=== PATIENT | female | born 1935 | race Caucasian/White ===

== ENCOUNTER 2017-01-24 16:09 | Inpatient (IN) | payer OTHER ==
[~2017-01-24] VITALS: Ht 165.1 cm; Wt 68.7 kg
[2017-01-24] MEDS ORDERED: SODIUM CHLORIDE 0.9% 1000ML 1,000 ML IV SCH (16:23)
[2017-01-24] MEDS ORDERED: AMLO-110 PO (16:41)
[2017-01-24] MEDS ORDERED: POLY335019 PO (16:41)
[2017-01-24] MEDS ORDERED: LOSA1TAB38 PO (16:41)
[2017-01-24] MEDS ORDERED: METO25TA56 PO (16:41)
[2017-01-24] MEDS ORDERED: SENN-65 PO (16:41)
[2017-01-24] MEDS ORDERED: FURO20TA PO (16:41)
[2017-01-24] MEDS ORDERED: CHOL1CAP67 PO (16:41)
[2017-01-24] MEDS ORDERED: AGG PO (16:41)
[2017-01-24] MEDS ORDERED: ATOR-24 PO (16:41)
[2017-01-24 17:09] LABS: BASO % 0.1 %; BASO ABS # 0.01 K/uL (0-0.2); COMPLETE YES; EOS % 0.8 %; HEMATOCRIT 41.5 % (37-47); IG% 0.1 %; LYMPH % 16.1 %; LYMPH ABS # 1.36 K/uL (1.2-3.4); MEAN CELL VOLUME 94.7 fL (80-100); MEAN CORPUSCULAR HEMOGLOBIN 32.4 pg (25-34); MEAN CORPUSCULAR HGB CONC 34.2 g/dl (32-36); MEAN PLATELET VOLUME 9.8 fL (7.4-10.4); MONO % 9.1 %; NEUT % 73.8 %; PLATELET COUNT 290 K/uL (130-400); RED BLOOD COUNT 4.38 M/uL (4.2-5.4); WHITE BLOOD COUNT 8.45 K/uL (4.8-10.8)
--- NOTE | 2017-01-24 17:15 | DIAGNOSTIC IMAGING REPORT ---
CT HEAD WITHOUT CONTRAST (CT) CLINICAL HISTORY: Stroke LEFT-SIDED WEAKNESS AND SLURRED SPEECH COMPARISON STUDY: No previous studies for comparison. TECHNIQUE: Axial CT of the brain is performed from the vertex to the skull base. IV contrast was not administered for this examination. CT DOSE: 537.48 mGy.cm FINDINGS: No intra or extra-axial mass lesions are visualized. There is no CT evidence of acute cortical infarction. There is no evidence of midline shift. There is no acute hemorrhage. No calvarial fractures are visualized. There are moderately extensive white matter hypodensities likely on a small vessel basis. There is an old right thalamic lacunar infarct. There is an old left cerebellar infarct. There is an old lacunar infarct in the region of the left external capsule. There is no evidence of pathologic ventricular dilatation. There is no evidence of acute sinusitis IMPRESSION: No acute intracranial findings Electronically signed by: Christopher Camejo M.D. 01/24/2017 5:14 PM Dictated Date/Time: 01/24/2017 5:12 PM
--- NOTE | 2017-01-24 17:24 | DIAGNOSTIC IMAGING REPORT ---
CHEST ONE VIEW PORTABLE CLINICAL HISTORY: Stroke COMPARISON STUDY: No previous studies for comparison. FINDINGS: The heart is borderline enlarged. There is no failure. There is no lobar consolidation. Linear opacities the left lung base are likely atelectatic.[ IMPRESSION: Left basilar opacities, likely atelectatic. No evidence of failure. Electronically signed by: Christopher Camejo M.D. 01/24/2017 5:22 PM Dictated Date/Time: 01/24/2017 5:22 PM
[2017-01-24 17:28] LABS: BLOOD UREA NITROGEN 12 mg/dl (7-18); BUN/CREATININE RATIO 20.3 (10-20); CALCIUM 9.3 mg/dl (8.5-10.1); CARBON DIOXIDE 29 mmol/L (21-32); CHLORIDE 99 mmol/L (98-107); CREATININE 0.61 mg/dl (0.60-1.20); GLUCOSE 104 mg/dl (70-99); POTASSIUM 3.8 mmol/L (3.5-5.1); SODIUM 137 mmol/L (136-145)
[2017-01-24 17:34] LABS: CKMB/CK RATIO 2.6 (0-3.0)
[2017-01-24 17:44] LABS: ALKALINE PHOSPHATASE 74 U/L (45-117); ALT/SGPT 15 U/L (12-78); AST/SGOT 14 U/L (15-37)
[2017-01-24] MEDS ORDERED: ASPIRIN 300 MG SUPP PR ONE (17:45)
[2017-01-24] MEDS ORDERED: POLYETHYLENE (MIRALAX) 17 GM PACK PO PRN (18:30)
[2017-01-24] MEDS ORDERED: ONDANSETRON INJ 2 MG/ML 2 ML VIAL IV PRN (18:30)
[2017-01-24] MEDS ORDERED: MAGNESIUM HYDROXIDE SUSP 30 ML UDC PO PRN (18:30)
[2017-01-24] MEDS ORDERED: PHARMACIST DISCHARGE MED REC CONSULT PRN (18:30)
[2017-01-24] MEDS ORDERED: ACETAMINOPHEN 325 MG TAB PO PRN (18:30)
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
[2017-01-24] MEDS ORDERED: HydrALAZINE HCL 20 MG/ML VIAL IV. PRN (19:30)
[2017-01-24] MEDS ORDERED: LORAZEPAM 2 MG/ML 1 ML VIAL ONE (19:52)
[2017-01-24 20:00] LABS: URINE APPEARANCE CLEAR (CLEAR); URINE BILIRUBIN NEG (NEG); URINE COLOR YELLOW; URINE EPITHELIAL CELL AUTO 0-5 /lpf (0-5); URINE NITRITE NEG (NEG); URINE SPECIFIC GRAVITY 1.012 (1.000-1.030); UROBILINOGEN NEG (NEG)
[2017-01-24] MEDS ORDERED: NURSING VERBAL MED ORDER ONE (20:00)
[2017-01-24 20:04] LABS: MANUAL MICROSCOPIC REQUIRED? NO; REVIEW REQ? YES
[2017-01-24] MEDS: HEPARIN SOD 5000 UNIT/0.5 ML CARP SQ SCH (22:00)
[2017-01-24 22:30] VITALS: BP 174/103; PULSE 75; TEMP 36.9; O2SAT 92; Ht 165.1 cm; Wt 68.7 kg
--- NOTE | 2017-01-24 22:33 | DIAGNOSTIC IMAGING REPORT ---
MR ANGIOGRAPHY OF THE [place] NO CONTRAST CLINICAL HISTORY: Multiple strokes. Confusion. Left-sided drooping. COMPARISON STUDY: None. A 3-D [id number] MR angiographic sequence of the [place] was performed. Both the source and projection images were reviewed. The study is limited from a technical standpoint secondary to patient motion. There is no evidence of major intracranial branch occlusion. There is no evidence of intracranial stenosis. There are no lesions suspicious for aneurysm. IMPRESSION: 1. Significantly limited study from a technical standpoint 2. No aneurysm identified 3. No evidence of major intracranial stenosis Electronically signed by: Christopher Camejo M.D. 01/24/2017 10:32 PM Dictated Date/Time: 01/24/2017 10:30 PM
--- NOTE | 2017-01-24 22:40 | DIAGNOSTIC IMAGING REPORT ---
MRI OF THE BRAIN WITHOUT AND WITH IV CONTRAST CLINICAL HISTORY: Stroke COMPARISON STUDY: Head CT dated 01/24/2017 TECHNIQUE: MRI of the brain was performed from the vertex to the skull base utilizing various T1 and T2 weighted sequences. Following the IV administration of 7.2 mL of Gadavist contrast, additional enhanced images were obtained. FINDINGS: Sagittal T1, axial diffusion, proton density and T2 weighted axial, coronal FLAIR, and pre and post axial T1-weighted images were acquired. These were supplemented with post gadolinium coronal T1 weighted images. No intra or extra-axial mass lesions are visualized. There are foci of restricted water diffusion within the left central gemma as well as the right caudate and lentiform nucleus. There is also a punctate focus of restricted water diffusion within the deep white matter of the right parietal lobe. There is no evidence of ventricular dilatation. Proton density T2-weighted and FLAIR images reveal there are moderately extensive foci of increased T2 signal within the white matter likely a small vessel basis. There are scattered lacunar infarcts involving the left cerebellar hemisphere, and both thalami. There are no abnormal flow voids. There is no evidence of pathologic enhancement. The examination is limited from a technical standpoint secondary to motion artifact IMPRESSION: 1. Acute/subacute infarcts involving the left central gemma, right caudate, and right lentiform nucleus 2. Moderately extensive white matter disease and multiple additional old lacunar infarcts 3. No pathologically enhancing masses 4. No evidence of hydrocephalus Electronically signed by: Christopher Camejo M.D. 01/24/2017 10:39 PM Dictated Date/Time: 01/24/2017 10:34 PM
[2017-01-24] MEDS ORDERED: GADAVIST IV PRN (22:45)
--- NOTE | 2017-01-24 22:46 | DIAGNOSTIC IMAGING REPORT ---
NECK MRA HISTORY: Stroke TECHNIQUE: [id number] and gadolinium-enhanced MRA of the neck was performed both before and after the intravenous administration of contrast. All measurements were calculated based on NASCET criteria. The patient was administered 7.2 cc of intravenous Gadavist. The study is limited from a technical standpoint secondary to motion artifact. COMPARISON STUDY: None. FINDINGS: The aortic arch and proximal great vessels are patent as visualized. There is no significant stenosis, occlusion, or dissection identified within the bilateral common carotid, internal carotid, or vertebral arteries. IMPRESSION: No significant stenosis, occlusion, or dissection identified within the carotid or vertebral arteries. Electronically signed by: Christopher Camejo M.D. 01/24/2017 10:45 PM Dictated Date/Time: 01/24/2017 10:43 PM
[2017-01-24 23:01] VITALS: BP 175/81; PULSE 68; TEMP 36.8; O2SAT 91
--- NOTE | 2017-01-24 23:02 | EMERGENCY ROOM VISIT NOTE ---
History Report prepared by Kita: Gosia Flower Under the Supervision of: Dr. Kit Rubio D.O. First contact with patient: 16:13 Chief Complaint: STROKE SYMPTOMS Stated Complaint: CVA SX History of Present Illness The patient is a 81 year old female who presents to the Emergency Room with complaints of worsening weakness beginning 2 days ago. Per nursing staff, the patient is living at [facility] after having a stroke recently. They report that she had left sided weakness with her previous stroke and over the last 2 days they have noticed no increasing left sided deficits. Family on the other hand notes that today when he saw her left facial droop is new. The last time I saw her was Sunday night. Nurse from [facility] was adamant that there has been no change since she is been there with exception of mild confusion. The patient states that she has a cold, sore throat, and she is having trouble speaking that began 2 weeks ago. She denies any abdominal pain, falls, trauma, headache, change in vision, chest pain, shortness of breath, nausea, vomiting, diarrhea, and weakness in the arms or legs. The patient states that she does not feel like she is any more weak on the left side. She notes that she is not on any blood thinners Source of History: patient, nursing staff Onset: 2 days ago Position: other (global) Quality: other (left sided weakness) Timing: worsening Associated Symptoms: + sorethroat, No SOB, No chest pain, No diarrhea, No headache, No nausea, No vomiting, No weakness Note: The patient states that she has trouble speaking, a cold and her voice is different than it normally is. She denies any change in vision. Review of Systems See HPI for pertinent positives & negatives. A total of 10 systems reviewed and were otherwise negative. Past Medical & Surgical Medical Problems: (1) CVA (cerebral vascular accident) (2) Stroke Family History No pertinent family history stated. Social History Smokeless Tobacco Use: No Housing Status: other ([facility]) Occupation Status: retired Current/Historical Medications Scheduled Amlodipine (Norvasc), 5 MG PO DAILY Atorvastatin (Lipitor), 40 MG PO DAILY Cholecalciferol (Vitamin D-3), 1,000 UNITS PO QAM Dipyridamole/Aspirin (Aggrenox 25-200 mg), 1 CAP PO BID Furosemide (Lasix), 20 MG PO QAM Losartan Potassium (Cozaar), 100 MG PO DAILY Metoprolol Tartrate (Lopressor) (Lopressor), 25 MG PO BID Polyethylene Glycol 3350 (Miralax), 8.5 GM PO Q2D Senna/Docusate Sod (Senokot S), 1 TAB PO DAILY Allergies Coded Allergies: Hydrochlorothiazide (Unverified Allergy, Unknown, UNKNOWN, 01/24/17) Physical Exam Vital Signs Date Time Temp Pulse Resp B/P Pulse Ox O2 Delivery O2 Flow Rate FiO2 01/24/17 18:32 165/86 01/24/17 18:29 73 17 94 01/24/17 18:14 74 16 91 01/24/17 18:09 71 18 93 01/24/17 18:02 183/89 01/24/17 17:54 71 19 01/24/17 17:41 172/81 01/24/17 17:39 71 20 93 01/24/17 17:24 78 15 01/24/17 17:14 187/91 01/24/17 16:54 73 20 01/24/17 16:48 72 01/24/17 16:33 94 Room Air 01/24/17 16:23 36.3 69 18 183/95 94 Room Air 01/24/17 16:14 183/95 Physical Exam GENERAL: alert, sitting up in bed, disheveled, ill-appearing EYE EXAM: normal conjunctiva, PERRL and EOM's intact OROPHARYNX: no exudate, no erythema, lips, buccal mucosa, and tongue normal and mucous membranes are moist NECK: supple, no nuchal rigidity, no adenopathy, non-tender LUNGS: Clear to auscultation. Normal chest wall mechanics HEART: no murmurs, S1 normal and S2 normal ABDOMEN: abdomen soft, non-tender, normo-active bowel sounds, no masses, no rebound or guarding. BACK: Back is symmetrical on inspection and there is no deformity, no midline tenderness, no CVA tenderness. SKIN: no rashes and no bruising UPPER EXTREMITIES: upper extremities are grossly normal. LOWER EXTREMITIES: No pitting edema. NEURO EXAM: Alert and oriented to person, place, and time. Slurred speech with left sided facial droop, weakness in the left upper and lower extremities but able to lift up off of the bed and grasp. Slight drift on the left. Finger to nose intact. Medical Decision & Procedures ER Provider Diagnostic Interpretation: Radiology results as stated below per my review and the radiologist's interpretation: CT HEAD WITHOUT CONTRAST (CT) FINDINGS: No intra or extra-axial mass lesions are visualized. There is no CT evidence of acute cortical infarction. There is no evidence of midline shift. There is no acute hemorrhage. No calvarial fractures are visualized. There are moderately extensive white matter hypodensities likely on a small vessel basis. There is an old right thalamic lacunar infarct. There is an old left cerebellar infarct. There is an old lacunar infarct in the region of the left external capsule. There is no evidence of pathologic ventricular dilatation. There is no evidence of acute sinusitis IMPRESSION: No acute intracranial findings Electronically signed by: Christopher Camejo M.D. 01/24/2017 5:14 PM Dictated Date/Time: 01/24/2017 5:12 PM CHEST ONE VIEW PORTABLE FINDINGS: The heart is borderline enlarged. There is no failure. There is no lobar consolidation. Linear opacities the left lung base are likely atelectatic.[ IMPRESSION: Left basilar opacities, likely atelectatic. No evidence of failure. Electronically signed by: Christopher Camejo M.D. 01/24/2017 5:22 PM Dictated Date/Time: 01/24/2017 5:22 PM Laboratory Results 01/24/17 16:52 Red Blood Count 4.38, Mean Corpuscular Volume 94.7, Mean Corpuscular Hemoglobin 32.4, Mean Corpuscular Hemoglobin Concent 34.2, Mean Platelet Volume 9.8, Neutrophils (%) (Auto) 73.8, Lymphocytes (%) (Auto) 16.1, Monocytes (%) (Auto) 9.1, Eosinophils (%) (Auto) 0.8, Basophils (%) (Auto) 0.1, Neutrophils # (Auto) 6.23, Lymphocytes # (Auto) 1.36, Monocytes # (Auto) 0.77, Eosinophils # (Auto) 0.07, Basophils # (Auto) 0.01 01/24/17 16:52 Test 01/24/17 16:38 01/24/17 16:52 01/24/17 17:00 01/24/17 17:30 Bedside Prothrombin Time INR 1.1 (0.9-1.1) White Blood Count 8.45 K/uL (4.8-10.8) Red Blood Count 4.38 M/uL (4.2-5.4) Hemoglobin 14.2 g/dL (12.0-16.0) Hematocrit 41.5 % (37-47) Mean Corpuscular Volume 94.7 fL (80-100) Mean Corpuscular Hemoglobin 32.4 pg (25-34) Mean Corpuscular Hemoglobin Concent 34.2 g/dl (32-36) Platelet Count 290 K/uL (130-400) Mean Platelet Volume 9.8 fL (7.4-10.4) Neutrophils (%) (Auto) 73.8 % Lymphocytes (%) (Auto) 16.1 % Monocytes (%) (Auto) 9.1 % Eosinophils (%) (Auto) 0.8 % Basophils (%) (Auto) 0.1 % Neutrophils # (Auto) 6.23 K/uL (1.4-6.5) Lymphocytes # (Auto) 1.36 K/uL (1.2-3.4) Monocytes # (Auto) 0.77 K/uL (0.11-0.59) Eosinophils # (Auto) 0.07 K/uL (0-0.5) Basophils # (Auto) 0.01 K/uL (0-0.2) RDW Standard Deviation 48.7 fL (36.4-46.3) RDW Coefficient of Variation 14.1 % (11.5-14.5) Immature Granulocyte % (Auto) 0.1 % Immature Granulocyte # (Auto) 0.01 K/uL (0.00-0.02) Anion Gap 9.0 mmol/L (3-11) Est Creatinine Clear Calc Drug Dose 71.1 ml/min Estimated GFR () 97.8 Estimated GFR (Non- 84.4 BUN/Creatinine Ratio 20.3 (10-20) Calcium Level 9.3 mg/dl (8.5-10.1) Total Bilirubin 0.4 mg/dl (0.2-1) Direct Bilirubin < 0.1 mg/dl (0-0.2) Aspartate Amino Transf (AST/SGOT) 14 U/L (15-37) Alanine Aminotransferase (ALT/SGPT) 15 U/L (12-78) Alkaline Phosphatase 74 U/L (45-117) Total Creatine Kinase 53 U/L (26-192) Creatine Kinase MB 1.4 ng/ml (0.5-3.6) Creatine Kinase MB Ratio 2.6 (0-3.0) Troponin I < 0.015 ng/ml (0-0.045) Total Protein 8.0 gm/dl (6.4-8.2) Albumin 3.7 gm/dl (3.4-5.0) Prothrombin Time 11.0 SECONDS (9.0-12.0) Prothromb Time International Ratio 1.0 (0.9-1.1) Activated Partial Thromboplast Time 24.8 SECONDS (21.0-31.0) Partial Thromboplastin Ratio 1.0 Urine Color YELLOW Urine Appearance CLEAR (CLEAR) Urine pH 6.0 (4.5-7.5) Urine Specific [place] 1.012 (1.000-1.030) Urine Protein NEG (NEG) Urine Glucose (UA) NEG (NEG) Urine Ketones TRACE (NEG) Urine Occult Blood 2+ (NEG) Urine Nitrite NEG (NEG) Urine Bilirubin NEG (NEG) Urine Urobilinogen NEG (NEG) Urine Leukocyte Esterase MODERATE (NEG) Urine WBC (Auto) >30 /hpf (0-5) Urine RBC (Auto) 5-10 /hpf (0-4) Urine Hyaline Casts (Auto) 0 /lpf (0-5) Urine Epithelial Cells (Auto) 0-5 /lpf (0-5) Urine Bacteria (Auto) NEG (NEG) Urine Pathogenic Casts /lpf (0) Laboratory results per my review. Medications Administered Medications (Trade) Dose Ordered Sig/Ivelisse Route Start Time Stop Time Status Last Admin Dose Admin Sodium Chloride (Nss 1000ml) 1,000 ml @ 50 mls/hr Q20H IV 01/24/17 16:23 01/24/17 20:21 DC 01/24/17 16:23 50 MLS/HR Aspirin (Aspirin Supp) 300 mg ONE ONCE NC 01/24/17 17:45 01/24/17 17:46 DC 01/24/17 19:14 300 MG ECG Indication: weakness Rate (beats per minute): 69 Rhythm: sinus rhythm Findings: left axis deviation, no ectopy ED Course ED COURSE: Vital signs were reviewed and showed hypertension The patients medical record was reviewed The above diagnostic studies were performed and reviewed. ED treatments and interventions as stated above. 1613: The patient was evaluated in room B9. A complete history and physical examination was performed. 1623: Sodium Chloride 1000 ml @ 50 mls/hr IV. 1710: I discussed the patient's case with [facility]. They state that the patient has been more confused over the last 2 days and the family noted a worsening left sided facial droop. 1725: I spoke to the patients family. The last time they saw her was Sunday and the facial droop and slurred speech was not there. They saw her 2 hours ago and noticed it. She has had 2 strokes in the last several months. 1745: Aspirin 300mg NC. 1742: I reviewed the patient's case with Dr. Cabrera of [facility] [place]. She will evaluate the patient for further management. 1744: Upon reevaluation, the patient is doing well.I discussed my findings with the patient and she understands and agrees with the treatment plan. Based on the patients age, coexisting illnesses, exam and lab findings the decision to treat as an inpatient was made. The patient remained stable while under my care. The patient will be evaluated for further management. Medical Decision Differential Diagnosis includes but is not limited to ischemic Stroke, hemorrhagic stroke, bells palsy, mass, neoplasm, migraine headache, seizure, subarachnoid hemorrhage, TIA, and transient global amnesia. Medication Reconciliation: I attest that I have personally reviewed the patient' s current medication list. Patient is an 81-year-old female is brought in by EMS for possible stroke. Family last saw her on Sunday and notes that today the facial droop and slurred speech is new. The patient notes that this has been present for the past 2 weeks. senior living staff note that slurred speech and facial droop is not new but rather she is slightly more confused. CBC along with BMP, LFTs and bilirubin was unremarkable. Troponin was negative. CT head was negative. UA shows UTI. Patient and family were updated at bedside. There admitted to internal medicine. A stroke alert was not called as I was uncertain if this is new or old and when the symptoms started. Consults Time Called: 173 Consulting Physician: Dr. Cabrera - [facility] [place] Returned Call: 174 I reviewed the patient's case with Dr. Cabrera of [facility] [place]. She will evaluate the patient for further management. Impression Primary Impression: Stroke Scribe Attestation The scribe's documentation has been prepared under my direction and personally reviewed by me in its entirety. I confirm that the note above accurately reflects all work, treatment, procedures, and medical decision making performed by me. Departure Information Dispostion Being Evaluated By Hospitalist Referrals No Doctor, Assigned (PCP) Patient Instructions My [facility] Stroke History Stroke t-PA Criteria Reviewed Does NOT meet criteria for t-PA Reason t-PA Not Given Treatment not indicated Problem Qualifiers Primary Impression: Stroke CVA mechanism: other Qualified Codes: I63.8 - Other cerebral infarction
[2017-01-24] MEDS: METOPROLOL TARTRATE 25 MG TAB PO SCH (23:16)
[2017-01-25] VITALS (14 sets, daily range): BP systolic 149–182; BP diastolic 79–90; PULSE 71–91; TEMP 36.4–36.9; O2SAT 91–97
[2017-01-25] MEDS ORDERED: NURSING DECISION MEDICATION ORDER SCH (04:15)
[2017-01-25] MEDS ORDERED: ICU SEVERE HYPERGLYCEMIA PROTOCOL ONE (04:15)
[2017-01-25] MEDS ORDERED: NURSING ICU ELECTROLYTE ORDER ONE (04:15)
[2017-01-25] MEDS ORDERED: NURSING VERBAL MED ORDER ONE ×2 (04:15→20:15)
[2017-01-25 05:45] LABS: BASO % 0.1 %; BASO ABS # 0.01 K/uL (0-0.2); COMPLETE YES; EOS % 0.8 %; HEMATOCRIT 38.1 % (37-47); IG% 0.1 %; LYMPH ABS # 1.12 K/uL (1.2-3.4); MEAN CELL VOLUME 94.3 fL (80-100); MEAN CORPUSCULAR HEMOGLOBIN 31.2 pg (25-34); MEAN CORPUSCULAR HGB CONC 33.1 g/dl (32-36); MEAN PLATELET VOLUME 9.7 fL (7.4-10.4); MONO % 11.9 %; NEUT % 72.1 %; PLATELET COUNT 262 K/uL (130-400); RED BLOOD COUNT 4.04 M/uL (4.2-5.4); WHITE BLOOD COUNT 7.46 K/uL (4.8-10.8)
[2017-01-25 06:18] LABS: BUN/CREATININE RATIO 21.1 (10-20); CALCIUM 8.5 mg/dl (8.5-10.1); CREATININE 0.48 mg/dl (0.60-1.20); MAGNESIUM 2.2 mg/dl (1.8-2.4); POTASSIUM 3.5 mmol/L (3.5-5.1)
[2017-01-25 06:21] LABS: CHOLESTEROL/HDL RATIO 1.6
--- NOTE | 2017-01-25 07:11 | DIAGNOSTIC IMAGING REPORT ---
CT OF THE HEAD WITHOUT CONTRAST CLINICAL HISTORY: fall and hit head, s/p CVA COMPARISON STUDY: Head CT and MRI of the brain January 24, 2017. CT DOSE: 1228.53 mGy.cm TECHNIQUE: Helical axial images of the head were obtained without IV contrast. Automated exposure control was utilized for the study. FINDINGS: No acute intracranial hemorrhage, midline shift or mass effect is present. Ventricular system is stable. Basilar cisterns are patent. There are no extra-axial collections. Extensive white matter hypodensity suggests small vessel disease. There is an old infarct within left cerebellar hemisphere. There is an old infarct within the right thalamus. The small acute to subacute infarcts on MRI of the brain performed January 24, 2017 are better depicted on that exam. There is no calvarial fracture. IMPRESSION: 1. No acute intracranial hemorrhage or mass effect. 2. The small acute to subacute infarcts shown on MRI of January 24, 2017 are better depicted on that exam. 3. No calvarial fracture. Electronically signed by: Angel Hdz M.D. 01/25/2017 7:10 AM Dictated Date/Time: 01/25/2017 7:05 AM
--- NOTE | 2017-01-25 08:05 | DIAGNOSTIC IMAGING REPORT ---
CHEST ONE VIEW PORTABLE CLINICAL HISTORY: Left rib pain after fall. COMPARISON STUDY: Chest radiograph January 24, 2017. FINDINGS: No pneumothorax or pleural effusion is identified. No left rib fractures are identified although sensitivity is diminished given this technique. There are cholecystectomy clips. Mild cardiomegaly is noted without evidence of pulmonary edema. There is mild left basilar opacity. IMPRESSION: 1. No pneumothorax. 2. Mild left basilar opacity which likely reflects atelectasis although consolidation could appear similar. Electronically signed by: Angel Hdz M.D. 01/25/2017 8:04 AM Dictated Date/Time: 01/25/2017 8:02 AM
[2017-01-25] MEDS ORDERED: DIPYRIDAMOLE/ASPIRIN CAP PO SCH (09:00)
[2017-01-25] MEDS: METOPROLOL TARTRATE 25 MG TAB PO SCH ×2 (09:00→21:00)
[2017-01-25] MEDS: ATORVASTATIN 40 MG TAB PO SCH (09:00)
[2017-01-25 09:46] LABS: ESTIMATED AVERAGE GLUCOSE 128 mg/dl; HA1C FLAG Normal (Normal)
[2017-01-25] MEDS ORDERED: PERFLUTREN LIPID MICROSPHERE (DEFINITY) IV ONE (10:11)
--- NOTE | 2017-01-25 10:36 | ECHOCARDIOGRAM REPORT ---
*NOTICE TO RECEIVING CONSTITUTION PARTY AGENCY This information is strictly Confidential and protected under [place] law. [place] law prohibits you from making any further disclosure of this information unless further disclosure is expressly permitted by the written consent of the person to whom it pertains or is authorized by law. A general authorization for the release of medical or other information is not sufficient for this purpose. Hospital accepts no responsibility if the information is made available to any other person, INCLUDING THE PATIENT. Interpretation Summary * Name: FERNANDEZ ROSA Study Date: 01/25/2017 07:44 AM BP: 151/82 mmHg * Patient Location: C.2T\S\S230\S\1 HR: 71 * : 1935 (M/d/yyyy) Gender: Female Height: 65 in * Age: 81 yrs Ethnicity: [place] Weight: 160 lb * Ordering Physician: Tayler Santos * Referring Physician: Ayden Oneil PA-C * Performed By: Lory Bates RDCS * * Reason For Study: CEREBRAL ISCHEMIA/EMBOLUS * BSA: 1.8 m2 * -- Conclusions -- * There is mild concentric left ventricular hypertrophy. * The left ventricle is hyperdynamic. * Grade I diastolic dysfunction, (abnormal relaxation pattern). * There is mild mitral regurgitation. * Right ventricular systolic pressure is elevated at 30-40mmHg. Procedure Details * A contrast injection of Definity was performed to improve assessment of LV function. * Contrast was injected into an intravenous site in the right arm. * One vial of Definity ultrasound contrast was diluted in normal saline to a total volume of 10 ml. A total of '2' ml of solution was administered during imaging. * Lot # [id number] of Definity utilized for procedure. * Expiration date MAR 13. * The attending nurse who injected the contrast agent was TAO REILLY RN. * A saline contrast injection was performed to assess for cardiac shunting. * The injection was performed through an intravenous line in the right arm. * The attending nurse who injected the saline contrast was TAO REILLY RN. * A total of 20 cc of agitated saline was given. Left Ventricle * The left ventricle is normal in size. * There is mild concentric left ventricular hypertrophy. * Ejection Fraction = >70 %. * The left ventricle is hyperdynamic. * Grade I diastolic dysfunction, (abnormal relaxation pattern). Right Ventricle * The right ventricle is normal in size and function. Atria * The left atrial size is normal. * Right atrial size is normal. Mitral Valve * The mitral valve leaflets appear thickened, but open well. * There is mild mitral regurgitation. Tricuspid Valve * The tricuspid valve anatomy is normal. * There is mild tricuspid regurgitation. * Right ventricular systolic pressure is elevated at 30-40mmHg. Aortic Valve * The aortic valve is normal in structure and function. * The aortic valve is trileaflet. * No hemodynamically significant valvular aortic stenosis. * There is no significant aortic regurgitation. Great Vessels * The aortic root is normal size. Pericardium/Pleural * There is no pericardial effusion. MMode 2D Measurements and Calculations IVSd 1.1 cm IVSs 1.4 cm LVIDd 3.5 cm LVIDs 1.9 cm LVPWd 0.83 cm LVPWs 1.6 cm IVS/LVPW 1.4 FS 47.5 % EDV(Teich) 52.6 ml ESV(Teich) 10.6 ml EF(Teich) 79.9 % EDV(cubed) 44.7 ml ESV(cubed) 6.4 ml EF(cubed) 85.6 % % IVS thick 24.3 % % LVPW thick 91.7 % LV mass(C)d 102.8 grams LV mass(C)dI 57.2 grams/m\S\2 LV mass(C)s 91.0 grams LV mass(C)sI 50.6 grams/m\S\2 CO(Teich) 3.2 l/min CI(Teich) 1.8 l/min/m\S\2 SV(Teich) 42.0 ml SI(Teich) 23.3 ml/m\S\2 CO(cubed) 2.9 l/min CI(cubed) 1.6 l/min/m\S\2 SV(cubed) 38.2 ml SI(cubed) 21.2 ml/m\S\2 Ao root diam 3.1 cm Ao root area 7.5 cm\S\2 ACS 1.3 cm LA dimension 3.4 cm asc Aorta Diam 3.3 cm LA/Ao 1.1 LVOT diam 1.7 cm LVOT area 2.3 cm\S\2 LVAd ap4 29.1 cm\S\2 LVLd ap4 8.0 cm EDV(MOD-sp4) 88.9 ml LVAs ap4 12.1 cm\S\2 LVLs ap4 5.9 cm ESV(MOD-sp4) 20.4 ml EF(MOD-sp4) 77.1 % LVAd ap2 24.6 cm\S\2 LVLd ap2 7.1 cm EDV(MOD-sp2) 70.7 ml LVAs ap2 8.6 cm\S\2 LVLs ap2 4.9 cm ESV(MOD-sp2) 13.3 ml EF(MOD-sp2) 81.2 % CO(MOD-sp4) 5.3 l/min CI(MOD-sp4) 2.9 l/min/m\S\2 SV(MOD-sp4) 68.5 ml SI(MOD-sp4) 38.1 ml/m\S\2 CO(MOD-sp2) 4.4 l/min CI(MOD-sp2) 2.5 l/min/m\S\2 SV(MOD-sp2) 57.4 ml SI(MOD-sp2) 31.9 ml/m\S\2 Doppler Measurements and Calculations MV E max roby 51.4 cm/sec MV A max roby 110.6 cm/sec MV E/A 0.46 MV P1/2t max roby 87.5 cm/sec MV P1/2t 78.4 msec MVA(P1/2t) 2.8 cm\S\2 MV dec slope 326.9 cm/sec\S\2 MV dec time 0.49 sec Ao V2 max 164.2 cm/sec Ao max PG 10.8 mmHg Ao max PG (full) -0.03 mmHg MARITZA(V,A) 2.3 cm\S\2 MARITZA(V,D) 2.3 cm\S\2 LV V1 max PG 10.8 mmHg LV V1 max 164.4 cm/sec PA V2 max 87.6 cm/sec PA max PG 3.1 mmHg PI max roby 166.2 cm/sec PI max PG 11.1 mmHg PI dec slope 125.3 cm/sec\S\2 PI P1/2t 388.5 msec TR max roby 264.0 cm/sec
--- NOTE | 2017-01-25 10:46 | ECHOCARDIOGRAM REPORT ---
*NOTICE TO RECEIVING GREEN PARTY AGENCY This information is strictly Confidential and protected under [place] law. [place] law prohibits you from making any further disclosure of this information unless further disclosure is expressly permitted by the written consent of the person to whom it pertains or is authorized by law. A general authorization for the release of medical or other information is not sufficient for this purpose. Hospital accepts no responsibility if the information is made available to any other person, INCLUDING THE PATIENT. Interpretation Summary * Name: FERNANDEZ ROSA Study Date: 01/25/2017 07:44 AM BP: 151/82 mmHg * Patient Location: C.2T\S\S230\S\1 HR: 71 * : 1935 (M/d/yyyy) Gender: Female Height: 65 in * Age: 81 yrs Ethnicity: [place] Weight: 160 lb * Ordering Physician: Tayler Santos * Referring Physician: Ayden Oneil PA-C * Performed By: Lory Bates RDCS * * Reason For Study: CEREBRAL ISCHEMIA/EMBOLUS * BSA: 1.8 m2 * -- Conclusions -- * There is mild concentric left ventricular hypertrophy. * The left ventricle is hyperdynamic. * Grade I diastolic dysfunction, (abnormal relaxation pattern). * There is mild mitral regurgitation. * Right ventricular systolic pressure is elevated at 30-40mmHg. * Injection of contrast documented no interatrial shunt. Procedure Details * A contrast injection of Definity was performed to improve assessment of LV function. * Contrast was injected into an intravenous site in the right arm. * One vial of Definity ultrasound contrast was diluted in normal saline to a total volume of 10 ml. A total of '2' ml of solution was administered during imaging. * Lot # [id number] of Definity utilized for procedure. * Expiration date MAR 13. * The attending nurse who injected the contrast agent was TAO REILLY RN. * A saline contrast injection was performed to assess for cardiac shunting. * The injection was performed through an intravenous line in the right arm. * The attending nurse who injected the saline contrast was TAO REILLY RN. * A total of 20 cc of agitated saline was given. Left Ventricle * The left ventricle is normal in size. * There is mild concentric left ventricular hypertrophy. * Ejection Fraction = >70 %. * The left ventricle is hyperdynamic. * Grade I diastolic dysfunction, (abnormal relaxation pattern). Right Ventricle * The right ventricle is normal in size and function. Atria * The left atrial size is normal. * Right atrial size is normal. * Injection of contrast documented no interatrial shunt. Mitral Valve * The mitral valve leaflets appear thickened, but open well. * There is mild mitral regurgitation. Tricuspid Valve * The tricuspid valve anatomy is normal. * There is mild tricuspid regurgitation. * Right ventricular systolic pressure is elevated at 30-40mmHg. Aortic Valve * The aortic valve is normal in structure and function. * The aortic valve is trileaflet. * No hemodynamically significant valvular aortic stenosis. * There is no significant aortic regurgitation. Great Vessels * The aortic root is normal size. Pericardium/Pleural * There is no pericardial effusion. MMode 2D Measurements and Calculations IVSd 1.1 cm IVSs 1.4 cm LVIDd 3.5 cm LVIDs 1.9 cm LVPWd 0.83 cm LVPWs 1.6 cm IVS/LVPW 1.4 FS 47.5 % EDV(Teich) 52.6 ml ESV(Teich) 10.6 ml EF(Teich) 79.9 % EDV(cubed) 44.7 ml ESV(cubed) 6.4 ml EF(cubed) 85.6 % % IVS thick 24.3 % % LVPW thick 91.7 % LV mass(C)d 102.8 grams LV mass(C)dI 57.2 grams/m\S\2 LV mass(C)s 91.0 grams LV mass(C)sI 50.6 grams/m\S\2 CO(Teich) 3.2 l/min CI(Teich) 1.8 l/min/m\S\2 SV(Teich) 42.0 ml SI(Teich) 23.3 ml/m\S\2 CO(cubed) 2.9 l/min CI(cubed) 1.6 l/min/m\S\2 SV(cubed) 38.2 ml SI(cubed) 21.2 ml/m\S\2 Ao root diam 3.1 cm Ao root area 7.5 cm\S\2 ACS 1.3 cm LA dimension 3.4 cm asc Aorta Diam 3.3 cm LA/Ao 1.1 LVOT diam 1.7 cm LVOT area 2.3 cm\S\2 LVAd ap4 29.1 cm\S\2 LVLd ap4 8.0 cm EDV(MOD-sp4) 88.9 ml LVAs ap4 12.1 cm\S\2 LVLs ap4 5.9 cm ESV(MOD-sp4) 20.4 ml EF(MOD-sp4) 77.1 % LVAd ap2 24.6 cm\S\2 LVLd ap2 7.1 cm EDV(MOD-sp2) 70.7 ml LVAs ap2 8.6 cm\S\2 LVLs ap2 4.9 cm ESV(MOD-sp2) 13.3 ml EF(MOD-sp2) 81.2 % CO(MOD-sp4) 5.3 l/min CI(MOD-sp4) 2.9 l/min/m\S\2 SV(MOD-sp4) 68.5 ml SI(MOD-sp4) 38.1 ml/m\S\2 CO(MOD-sp2) 4.4 l/min CI(MOD-sp2) 2.5 l/min/m\S\2 SV(MOD-sp2) 57.4 ml SI(MOD-sp2) 31.9 ml/m\S\2 Doppler Measurements and Calculations MV E max roby 51.4 cm/sec MV A max roby 110.6 cm/sec MV E/A 0.46 MV P1/2t max roby 87.5 cm/sec MV P1/2t 78.4 msec MVA(P1/2t) 2.8 cm\S\2 MV dec slope 326.9 cm/sec\S\2 MV dec time 0.49 sec Ao V2 max 164.2 cm/sec Ao max PG 10.8 mmHg Ao max PG (full) -0.03 mmHg MARITZA(V,A) 2.3 cm\S\2 MARITZA(V,D) 2.3 cm\S\2 LV V1 max PG 10.8 mmHg LV V1 max 164.4 cm/sec PA V2 max 87.6 cm/sec PA max PG 3.1 mmHg PI max roby 166.2 cm/sec PI max PG 11.1 mmHg PI dec slope 125.3 cm/sec\S\2 PI P1/2t 388.5 msec TR max roby 264.0 cm/sec
[2017-01-25] MEDS: SODIUM CHLOR 0.45% + 20MEQ KCL 1,000 ML IV SCH (13:00)
[2017-01-25] MEDS: HEPARIN SOD 5000 UNIT/0.5 ML CARP SQ SCH ×2 (14:04→21:43)
--- NOTE | 2017-01-25 17:38 | CONSULTATION REPORT ---
DATE OF CONSULTATION: 01/25/2017 CONSULTATION FOR: Ayden Oneil PA-C. 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 [place] records were reviewed, the workup there including MRI scan showed multiple emboli and an echocardiogram was unremarkable with the exception of some left atrial enlargement. There is no mention made of any paroxysmal atrial fibrillation. Vascular studies revealed no clear source of the emboli and the carotid system at least documented by MRA, etc. She was doing reasonably well at [facility] allowing for her baseline dementia and her status post a prior hemorrhagic CVA apparently in 2011, but then was noted to have an acute left facial droop, more confusion, slurred speech and was sent here. The MRI in [place] revealed tiny foci restricted diffusion throughout the right cerebral hemisphere involving the frontal lobe, parietal lobe, possibly the temporal lobe and the right basal ganglia and one tiny punctate focus of restricted diffusion involving the anterior corpus callosum. The report also goes on to state there were tiny foci of restricted diffusion in the left cerebellar hemispheres. There is also extensive white matter disease from prior small vessel events. The current MRI done here at [facility] shows changes in newer areas and these would correlate nicely with her current deficits. It appears therefore that she has had recurrent embolic events despite being treated with Aggrenox over the last several days, started at [facility]. MEDICAL PROBLEMS: Including the prior CVA, hypertension, and an increasing dementia to the point that the family has been unable to care for at home. She has had frequent falls due to impulsivity and an application has been placed for [employer]. MEDICATIONS: At [facility] include amlodipine, atorvastatin, cholecalciferol, Aggrenox, furosemide, losartan, metoprolol, polyethylene glycol and senna. ALLERGIES: She has no coded drug allergies. According to, I believe her daughter, she had been on just aspirin at home after the first cerebrovascular accident in 2011, but had not had any other agents added to this. FAMILY HISTORY: Noncontributory. SOCIAL HISTORY: Reveals her to be . She currently is living with a daughter, but plans are as above to place her on an extended care facility. She is a nonsmoker, no-consumer of ethanol. She is retired. REVIEW OF SYSTEMS: Reveals no recent fevers, sweats, chills, weight loss, although she needs to be encouraged to eat, but when food is presented she has a ferocious appetite. There has been no abdominal complaints. She has had no issues referable to head, eyes, ears, nose and throat other than those related to her strokes. There have been no cardiovascular, pulmonary, gastrointestinal, and genitourinary issues either. PHYSICAL EXAMINATION: GENERAL: Performed last night revealed a blood pressure 183/95, pulse of 69; she was afebrile. GENERAL: She was a thin elderly woman who had dysarthric speech. NECK: Supple. LUNGS: Clear. HEART: Had a regular rate and rhythm. EXTREMITIES: Revealed no edema. ABDOMEN: There was no enlargement of liver or spleen. NEUROLOGIC: Today neurologically she is awake, alert. She has dysarthric speech. She is clearly confused, talks about her and is not oriented to place at this point and really not a reliable historian. She has a left upper motor neuron facial paresis. 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 She has no primary sensory loss that I can detect. There is no preferential head or eye deviation. She has a left hemiparesis of mild to moderate severity. The left toe sign is extensor is a positive Pamela, reflexes are a little brisker on the left side. How many of these findings are new versus old, is unclear. The right-sided testing is normal, really no pathologic reflexes, hyperreflexia, etc. Sensory examination is pretty unreliable. I tried to test her sensory neglect and was unsuccessful in doing so. IMAGING DATA: At this point, again, our MRI shows evidence for acute to subacute infarction involving the left central gemma, right caudate and right lentiform nucleus. There is moderately extensive white matter disease and multiple old lacunar infarctions. IMPRESSION AND PLAN: Comparing at least what the [facility] written report says It appears that what we are seeing now is fairly new and I think the left-sided weakness is probably due to the new right caudate and/or right lentiform nuclei embolic infarctions. Right now, this woman has "failed "on Aggrenox therapy ( duration however may have been to short to make this conclusion valid ). She is cognitively impaired, has a high fall risk and while her left atrium was dilated on the [place], echo it appears to be a normal size on our study. She may be having paroxysmal atrial fibrillation, but even if she is I think her risk for going on to novel anticoagulants or Coumadin is outweighed by any benefits skilled nursing and after discussion with her daughter today, I believe she is on the same page. At this point then, one could continue to use the Aggrenox as the argument could be it was not on her medication list long enough to become effective. Another option is to switch to aspirin and Plavix. I will let this up to her current caregivers, but I see no harm in either approach. As long as she is tolerating the Aggrenox and has it paid for, I would simply continue it for now. Dr. Falcon is going to be coming on the service. I will check Mrs. Dalal out to her and I will see what she feels about further management, but for now, I would go on record is not being in favor of doing further investigations to see if she is in paroxysmal atrial fibrillation as frankly. Even if she were, I do not think we would change our treatment. Quibbling about what antiplatelet drug to use in this setting is of probably more academic than practical benefit as neither asa and plavix or aggrenox are likley to offer much protection against what is likely paroxysmal atrial fibrillation and both would be appropriate for otherwise cryptogenic embolic strokes. MAYRA
--- NOTE | 2017-01-25 18:07 | Progress Note ---
Subjective Date of Service: Jan 25, 2017. Subjective Pt evaluation today including: conversation w/ family, physical exam, chart review, lab review, review of studies, review of inpatient medication list pt seen around 1130 extensive discussion with family no meaningful HPI or ROS obtainable from pt at this time - will occassionally grunt and motion with mouth for sponge d/w speech - did poorly - for video swallow tomorrow family notes was doing well at [facility] then found in near-current state - sent to ER. was there recovering from stroke ~3wks ago - she was on asa 325mg daily prior to that, changed to aggrenox separately family notes a progressive decline - worsening dementia - to where they're afraid to leave her home alone -- this has been worsening for a long time and they note even before the stroke she was not safe at home Review of Systems unobtainable Objective Vital Signs Date Time Temp Pulse Resp B/P (MAP) Pulse Ox O2 Delivery O2 Flow Rate FiO2 01/25/17 16:00 93 Room Air 01/25/17 15:19 36.7 82 20 153/79 (103) 96 Room Air 01/25/17 15:05 88 97 01/25/17 12:00 93 Room Air 01/25/17 11:20 36.9 83 20 165/88 (113) 93 Room Air 01/25/17 08:00 93 Room Air 01/25/17 07:55 36.4 71 20 151/82 (105) 93 Room Air 01/25/17 04:10 Room Air 01/25/17 03:06 36.4 71 20 175/90 (118) 96 Room Air 01/25/17 01:00 81 16 175/82 (113) 91 Room Air 01/25/17 00:10 91 Room Air 01/24/17 23:01 36.8 68 16 175/81 (112) 91 Room Air 01/24/17 22:30 36.9 75 20 174/103 92 Room Air 01/24/17 20:12 36.3 80 18 182/98 93 01/24/17 19:01 171/90 01/24/17 18:59 76 18 90 01/24/17 18:44 75 19 93 01/24/17 18:32 165/86 01/24/17 18:29 73 17 94 01/24/17 18:14 74 16 91 01/24/17 18:09 71 18 93 01/24/17 18:02 183/89 Physical Exam General Appearance: no apparent distress (resting in bed, occassionaly grunts for water) Neck: trachea midline Respiratory/Chest: no respiratory distress, no accessory muscle use Skin: normal color, warm/dry Laboratory Results Last 24 Hours Test 01/25/17 05:14 White Blood Count 7.46 K/uL Red Blood Count 4.04 M/uL Hemoglobin 12.6 g/dL Hematocrit 38.1 % Mean Corpuscular Volume 94.3 fL Mean Corpuscular Hemoglobin 31.2 pg Mean Corpuscular Hemoglobin Concent 33.1 g/dl Platelet Count 262 K/uL Mean Platelet Volume 9.7 fL Neutrophils (%) (Auto) 72.1 % Lymphocytes (%) (Auto) 15.0 % Monocytes (%) (Auto) 11.9 % Eosinophils (%) (Auto) 0.8 % Basophils (%) (Auto) 0.1 % Neutrophils # (Auto) 5.37 K/uL Lymphocytes # (Auto) 1.12 K/uL Monocytes # (Auto) 0.89 K/uL Eosinophils # (Auto) 0.06 K/uL Basophils # (Auto) 0.01 K/uL RDW Standard Deviation 48.0 fL RDW Coefficient of Variation 14.0 % Immature Granulocyte % (Auto) 0.1 % Immature Granulocyte # (Auto) 0.01 K/uL Sodium Level 138 mmol/L Potassium Level 3.5 mmol/L Chloride Level 100 mmol/L Carbon Dioxide Level 32 mmol/L Anion Gap 6.0 mmol/L Blood Urea Nitrogen 10 mg/dl Creatinine 0.48 mg/dl Est Creatinine Clear Calc Drug Dose 90.2 ml/min Estimated GFR () 105.9 Estimated GFR (Non- 91.4 BUN/Creatinine Ratio 21.1 Random Glucose 105 mg/dl Estimated Average Glucose 128 mg/dl Hemoglobin A1c 6.1 % Calcium Level 8.5 mg/dl Magnesium Level 2.2 mg/dl Triglycerides Level 46 mg/dl Cholesterol Level 100 mg/dl HDL Cholesterol 63 mg/dl LDL Cholesterol, Calculated 28 mg/dl VLDL Cholesterol, Calculated 9 mg/dl Cholesterol/HDL Ratio 1.6 Assessment and Plan ? 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 3wks ago and now aggrenox w current stroke MRI, echo, carotids, lipids, A1c noted -stroke b/l raising concern for central embolic, but overall picture seems that of hypertensive small vessel disease -since can't safely take pills right now - holding on all but asa suppository -await neuro input but doubt enough nidus for anticoagulation at this time, [facility] / son in law note that there they were told she had a "hailstorm" stroke. 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
[2017-01-25] MEDS ORDERED: METOPROLOL TARTRATE 1 MG/ML VIAL IV PRN (20:45)
[2017-01-26] VITALS (12 sets, daily range): BP systolic 126–180; BP diastolic 64–92; PULSE 69–90; TEMP 36.6–36.9; O2SAT 92–99
[2017-01-26] MEDS: SODIUM CHLOR 0.45% + 20MEQ KCL 1,000 ML IV SCH (03:01)
[2017-01-26] MEDS: HEPARIN SOD 5000 UNIT/0.5 ML CARP SQ SCH ×3 (05:40→20:48)
[2017-01-26 05:54] LABS: BASO % 0.2 %; BASO ABS # 0.01 K/uL (0-0.2); COMPLETE YES; EOS % 1.1 %; IG% 0.2 %; LYMPH % 19.9 %; LYMPH ABS # 1.07 K/uL (1.2-3.4); MEAN CELL VOLUME 94.8 fL (80-100); MEAN CORPUSCULAR HEMOGLOBIN 31.4 pg (25-34); MEAN CORPUSCULAR HGB CONC 33.2 g/dl (32-36); MEAN PLATELET VOLUME 9.5 fL (7.4-10.4); MONO % 10.4 %; NEUT % 68.2 %; PLATELET COUNT 276 K/uL (130-400); RED BLOOD COUNT 4.01 M/uL (4.2-5.4); WHITE BLOOD COUNT 5.38 K/uL (4.8-10.8)
[2017-01-26 06:36] LABS: BUN/CREATININE RATIO 20.4 (10-20); CALCIUM 8.6 mg/dl (8.5-10.1); CREATININE 0.55 mg/dl (0.60-1.20); POTASSIUM 4.1 mmol/L (3.5-5.1)
[2017-01-26] MEDS ORDERED: ASPIRIN 300 MG SUPP PR SCH (09:00)
[2017-01-26] MEDS: ATORVASTATIN 40 MG TAB PO SCH (09:00)
[2017-01-26] MEDS: METOPROLOL TARTRATE 25 MG TAB PO SCH ×2 (09:00→20:46)
--- NOTE | 2017-01-26 14:54 | DIAGNOSTIC IMAGING REPORT ---
VIDEO SWALLOW HISTORY: r/o aspiration post-stroke; please schedule per order TECHNIQUE: Video fluoroscopic evaluation of swallowing was performed in the AP and lateral projections by the speech pathology staff. The patient is fed nectar-thick and thin liquid barium, a barium coated wafer, and barium pudding. FLUOROSCOPY TIME: 4.5 minutes. A cine loop submitted. COMPARISON STUDY: None. FINDINGS: There is slightly poor pharyngeal constriction and pharyngeal fasciculations resulting in a few episodes of incomplete epiglottic deflection. This results in deep penetration with the thin liquid barium. No aspiration was identified. Small to moderate amount of residue seen within the hypopharynx. IMPRESSION: 1. No aspiration identified. Additional findings as described above. 2. Please see the speech pathologist report for detailed findings and recommendations. Electronically signed by: Yousif Kumar M.D. 01/26/2017 2:53 PM Dictated Date/Time: 01/26/2017 2:50 PM
[2017-01-26] MEDS ORDERED: ALPRAZOLAM 0.25 MG TAB PO ONE (15:24)
[2017-01-26] MEDS ORDERED: LORAZEPAM 0.5 MG TAB PO STA (15:34)
--- NOTE | 2017-01-26 15:36 | Progress Note ---
Subjective Date of Service: Jan 26, 2017. Subjective Pt evaluation today including: conversation w/ patient, conversation w/ family , physical exam, chart review, lab review, review of studies, review of inpatient medication list did reasonably well on video swallow - modified diet but safe for PO no meaningful HPI or ROS - does reiterate/perseverate that she feels like she has to have a BM, and that R hand is a little cold. no active complaints otherwise family present and updated to the best of my ability and to their satisfaction Review of Systems essentially unobtainable except for as above Objective Vital Signs Date Time Temp Pulse Resp B/P (MAP) Pulse Ox O2 Delivery O2 Flow Rate FiO2 01/26/17 12:00 93 Room Air 01/26/17 11:42 36.9 82 16 180/76 (110) 95 Room Air 01/26/17 11:38 36.8 83 173/92 (119) 92 Room Air 01/26/17 08:00 93 Room Air 01/26/17 07:54 36.6 75 16 162/64 (96) 93 Room Air 01/26/17 04:00 93 Room Air 01/26/17 03:47 36.7 84 20 159/82 (107) 93 Room Air 01/26/17 00:01 93 Room Air 01/25/17 23:25 36.9 87 20 149/80 (103) 93 Room Air 01/25/17 21:53 85 162/85 (110) 01/25/17 21:18 99 191/81 01/25/17 20:00 93 Room Air 01/25/17 19:26 36.9 91 18 182/79 (113) 93 Room Air 01/25/17 16:00 93 Room Air Physical Exam General Appearance: no apparent distress Eyes: EOMI ENT: hearing grossly normal, + pertinent finding (L side of head bruising stable/healing) Neck: trachea midline Respiratory/Chest: lungs clear, normal breath sounds, no respiratory distress, no accessory muscle use Cardiovascular: regular rate, rhythm Abdomen: non tender (nondistended), soft Extremities: normal range of motion (overall - difficult to totally assess. hand cold but only in a "normally cold" kind of way no cyanosis good n/v intact) Neurologic/Psychiatric: alert, + pertinent finding (very difficult exam no new deficits noted) Skin: normal color, warm/dry Laboratory Results Last 24 Hours Test 6/2/17 05:30 White Blood Count 5.38 K/uL Red Blood Count 4.01 M/uL Hemoglobin 12.6 g/dL Hematocrit 38.0 % Mean Corpuscular Volume 94.8 fL Mean Corpuscular Hemoglobin 31.4 pg Mean Corpuscular Hemoglobin Concent 33.2 g/dl Platelet Count 276 K/uL Mean Platelet Volume 9.5 fL Neutrophils (%) (Auto) 68.2 % Lymphocytes (%) (Auto) 19.9 % Monocytes (%) (Auto) 10.4 % Eosinophils (%) (Auto) 1.1 % Basophils (%) (Auto) 0.2 % Neutrophils # (Auto) 3.67 K/uL Lymphocytes # (Auto) 1.07 K/uL Monocytes # (Auto) 0.56 K/uL Eosinophils # (Auto) 0.06 K/uL Basophils # (Auto) 0.01 K/uL RDW Standard Deviation 48.8 fL RDW Coefficient of Variation 14.2 % Immature Granulocyte % (Auto) 0.2 % Immature Granulocyte # (Auto) 0.01 K/uL Sodium Level 137 mmol/L Potassium Level 4.1 mmol/L Chloride Level 101 mmol/L Carbon Dioxide Level 30 mmol/L Anion Gap 6.0 mmol/L Blood Urea Nitrogen 11 mg/dl Creatinine 0.55 mg/dl Est Creatinine Clear Calc Drug Dose 76.8 ml/min Estimated GFR () 101.2 Estimated GFR (Non- 87.4 BUN/Creatinine Ratio 20.4 Random Glucose 99 mg/dl Calcium Level 8.6 mg/dl Assessment and Plan 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 3wks ago and now aggrenox w current stroke MRI, echo, carotids, lipids, A1c noted -stroke b/l raising concern for central embolic, but overall picture seems that of hypertensive small vessel disease -permissive HTN, antiplatelet, statin (agree w neuro that mainly academic between plavix or aggrenox with paucity of data on CVA failing asa) -PT/OT/speech -records reviewed from [place] - appearing embolic but all on same side of brain no clear indication for anticoagulation then either HTN -permissive HTN for now -Hydralazine 10 mg IV q 6 hr PRN -depending on BP readings - likely start PO meds (metoprolol) in 24-48hrs dysphagia -diet per speech recommendations -able to take pills -dc IVFs dementia (possibly with some acute delirium) -family describes probably moderate moving towards severe as prestroke baseline -they note not safe at home prior to strokes - anticipate half-way in SNF. first for rehab from stroke then likely as half-way for dementia--family much prefers [facility] in [place] anxiety -family notes that at baseline she was taking xanax uncertain dose TID scheduled for years -- reviewed PDMP - actually it's lorazepam 0.5mg -- hesitate to give since she has dementia/elderly/in hospital/showing some signs of delirium; but hesitate to not give due to concern on withdrawal --> will cautiously give BID and follow DVT prophylaxis -Heparin 5000 u subQ tID -ELI SCDs CODE STATUS -LEVEL V DO NO RESUSCITATE stable for med/surg anticipate [facility] SNF by 01/29
[2017-01-26] MEDS: LORAZEPAM 0.5 MG TAB PO SCH (20:45)
[2017-01-26] MEDS ORDERED: ALPRAZOLAM 0.25 MG TAB PO SCH (21:00)
--- NOTE | 2017-01-27 04:01 | NEUROLOGY CONSULTATION ---
DATE OF CONSULTATION: 01/26/2017 SUBJECTIVE: I am seeing Mrs. Dalal in followup. Dr. Lopez saw her yesterday and by review of his note, she has history of a right stroke in approximately 2012 with residual left hemiparesis. She had a recent admission to [facility] for new neurologic deficit. MRI is showing multiple emboli. Echo was unremarkable with the exception of some left atrial enlargement. She was placed on Aggrenox at the time of stroke and transferred to [facility]. At [facility], several days ago, it was noted that she had change in her speech as well as new left facial droop. The MRI at our facility shows acute to subacute infarcts involving the left central gemma, right caudate and right lentiform nucleus. Dr. Lopez has appropriately discussed with her daughter that this may be cardioembolic in nature and he recommended the continuing Aggrenox which she had probably not been on for long enough to know that it would be effective or switching to aspirin and Plavix. The patient has done well. She had a swallowing study today, the evening before she fell out of bed with a large area of ecchymosis of the left face. I have reviewed her CT and it shows no evidence of hemorrhage. OBJECTIVE: GENERAL: She is able to state her own name. She believes she is in [place], does not know the year, does not have right/left confusion. VITAL SIGNS: 36.9, 82, 16, 180/76 and 95%. NEUROLOGIC: There is no obvious field cut. There is a very prominent flattening of the left nasal labial fold. There is dysarthria. Left hemiparesis is noted. IMPRESSION: Multiple bilateral cerebral and brainstem infarction. Very possibly embolic, but the patient is a very poor candidate for anticoagulant therapy. I agree with Dr. Lopez; we could either continue Aggrenox switch to Plavix and aspirin. Gradual risk factor modification including gradual reduction of blood pressure. It appears that her lipids are well-managed. We will follow with you.
[2017-01-27] MEDS: HEPARIN SOD 5000 UNIT/0.5 ML CARP SQ SCH ×3 (05:43→20:36)
[2017-01-27 07:37] LABS: BASO % 0.2 %; BASO ABS # 0.01 K/uL (0-0.2); COMPLETE YES; EOS % 2.6 %; HEMATOCRIT 37.2 % (37-47); IG% 0.2 %; LYMPH % 18.8 %; LYMPH ABS # 1.08 K/uL (1.2-3.4); MEAN CELL VOLUME 94.4 fL (80-100); MEAN CORPUSCULAR HEMOGLOBIN 31.5 pg (25-34); MEAN CORPUSCULAR HGB CONC 33.3 g/dl (32-36); MEAN PLATELET VOLUME 9.5 fL (7.4-10.4); MONO % 12.7 %; NEUT % 65.5 %; PLATELET COUNT 268 K/uL (130-400); RED BLOOD COUNT 3.94 M/uL (4.2-5.4); WHITE BLOOD COUNT 5.75 K/uL (4.8-10.8)
[2017-01-27 07:50] VITALS: BP 169/85; PULSE 69; TEMP 36.7; O2SAT 90
[2017-01-27] MEDS: ATORVASTATIN 40 MG TAB PO SCH (08:26)
[2017-01-27] MEDS: LORAZEPAM 0.5 MG TAB PO SCH ×2 (08:26→20:24)
[2017-01-27] MEDS: METOPROLOL TARTRATE 25 MG TAB PO SCH ×2 (08:26→20:24)
[2017-01-27 08:42] LABS: BUN/CREATININE RATIO 17.5 (10-20); CALCIUM 8.7 mg/dl (8.5-10.1); CREATININE 0.52 mg/dl (0.60-1.20); POTASSIUM 3.7 mmol/L (3.5-5.1)
[2017-01-27] MEDS: CLOPIDOGREL BISULFATE 75 MG TAB PO SCH (10:32)
--- NOTE | 2017-01-27 13:07 | PROGRESS NOTE ---
DATE: 01/27/2017 SUBJECTIVE: I am seeing Mrs. Dalal in followup of multiple cerebral infarcts, likely embolic. She has been switched to Plavix. She has no new complaints. She has no headache. OBJECTIVE: She is awake, alert, mildly confused, able to state her name. She thinks she is in a nursing facility. There is no field cut, a mild left facial droop and a modest left hemiparesis, arm greater than leg. IMPRESSION AND PLAN: Multiple cerebral infarctions, very likely cardioembolic. The patient is a poor candidate for anticoagulation given the fall risk and underlying cognitive dysfunction. Agree with Plavix, risk factor modification, gradual reduction in blood pressure. We will sign off. Please reconsult, if needed.
--- NOTE | 2017-01-27 14:07 | Progress Note ---
Subjective Date of Service: Jan 27, 2017. Subjective Pt evaluation today including: conversation w/ patient, physical exam, chart review, lab review, review of inpatient medication list no new complaints. moving better, feeling better. due to dementia and slurred speech, HPI very difficult to ascertain but seems to have no acute complaints Review of Systems ROS otherwise unobtainable except for as above Objective Vital Signs Date Time Temp Pulse Resp B/P (MAP) Pulse Ox O2 Delivery O2 Flow Rate FiO2 01/27/17 07:50 36.7 69 18 169/85 (113) 90 Room Air 01/27/17 00:00 Room Air 01/26/17 23:21 36.6 69 18 126/79 (95) 96 Room Air 01/26/17 17:36 36.6 90 18 143/81 (101) 93 Room Air 01/26/17 17:15 99 Room Air 01/26/17 16:00 99 Room Air Physical Exam General Appearance: no apparent distress Eyes: EOMI ENT: hearing grossly normal (seems to be), + pertinent finding (facial droop L slurred speech but much more communicative than yesterday and far more alert than on day 1) Neck: trachea midline Respiratory/Chest: lungs clear, normal breath sounds, no respiratory distress, no accessory muscle use Cardiovascular: regular rate, rhythm Extremities: normal range of motion Neurologic/Psychiatric: instructor creeler II-XII nml as tested (facial droop slurred speech as above), alert, + disoriented (seems to be fairly confused - after discussions with family seems probably not too far from baseline) Skin: normal color, warm/dry Laboratory Results Last 24 Hours Test 01/27/17 06:46 White Blood Count 5.75 K/uL Red Blood Count 3.94 M/uL Hemoglobin 12.4 g/dL Hematocrit 37.2 % Mean Corpuscular Volume 94.4 fL Mean Corpuscular Hemoglobin 31.5 pg Mean Corpuscular Hemoglobin Concent 33.3 g/dl Platelet Count 268 K/uL Mean Platelet Volume 9.5 fL Neutrophils (%) (Auto) 65.5 % Lymphocytes (%) (Auto) 18.8 % Monocytes (%) (Auto) 12.7 % Eosinophils (%) (Auto) 2.6 % Basophils (%) (Auto) 0.2 % Neutrophils # (Auto) 3.77 K/uL Lymphocytes # (Auto) 1.08 K/uL Monocytes # (Auto) 0.73 K/uL Eosinophils # (Auto) 0.15 K/uL Basophils # (Auto) 0.01 K/uL RDW Standard Deviation 48.8 fL RDW Coefficient of Variation 14.2 % Immature Granulocyte % (Auto) 0.2 % Immature Granulocyte # (Auto) 0.01 K/uL Sodium Level 140 mmol/L Potassium Level 3.7 mmol/L Chloride Level 103 mmol/L Carbon Dioxide Level 32 mmol/L Anion Gap 5.0 mmol/L Blood Urea Nitrogen 9 mg/dl Creatinine 0.52 mg/dl Est Creatinine Clear Calc Drug Dose 81.2 ml/min Estimated GFR () 103.1 Estimated GFR (Non- 89.0 BUN/Creatinine Ratio 17.5 Random Glucose 98 mg/dl Calcium Level 8.7 mg/dl Assessment and Plan 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 3wks ago and now aggrenox w current stroke MRI, echo, carotids, lipids, A1c noted -stroke b/l raising concern for central embolic, but overall picture seems that of hypertensive small vessel disease, and agree w neurology about risks for anticoagulation being more harm than good -without a clear "smoking gun" of embolic disease requiring anticoagulation - would continue anitplatelet -permissive HTN, antiplatelet, statin (agree w neuro that mainly academic between plavix or aggrenox with paucity of data on CVA failing asa), on plavix -PT/OT/speech -records reviewed from [facility] - appearing embolic but all on same side of brain no clear indication for anticoagulation then either HTN -BP's all reasonable -Hydralazine 10 mg IV q 6 hr PRN -will start metoprolol 01/28 dysphagia -diet per speech recommendations -able to take pills -no s/s aspiration dementia (possibly with some acute delirium) -family describes probably moderate moving towards severe as prestroke baseline -they note not safe at home prior to strokes - anticipate long-term in SNF. 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
[2017-01-27 15:26] VITALS: BP 155/93; PULSE 82; TEMP 37.1; O2SAT 94
[2017-01-27 22:59] VITALS: BP 123/75; PULSE 70; TEMP 37.2; O2SAT 93
[2017-01-28] MEDS: HEPARIN SOD 5000 UNIT/0.5 ML CARP SQ SCH ×3 (05:59→20:01)
[2017-01-28 06:34] VITALS: BP 167/94; PULSE 70; TEMP 36.4; O2SAT 94
[2017-01-28] MEDS: LORAZEPAM 0.5 MG TAB PO SCH ×2 (09:19→19:53)
[2017-01-28] MEDS: ATORVASTATIN 40 MG TAB PO SCH (09:20)
[2017-01-28] MEDS: METOPROLOL TARTRATE 25 MG TAB PO SCH ×2 (09:20→19:53)
[2017-01-28] MEDS: CLOPIDOGREL BISULFATE 75 MG TAB PO SCH (09:20)
[2017-01-28 14:44] VITALS: BP 160/91; PULSE 73; TEMP 36.7; O2SAT 95
--- NOTE | 2017-01-28 16:18 | Progress Note ---
Subjective Date of Service: Jan 28, 2017. Subjective Pt evaluation today including: conversation w/ patient, physical exam, chart review, lab review, review of inpatient medication list feeling better up and brighter, moving more speaking more clearly good eye contact. notes no acute complaints. still overall pleasantly confused, almost able to carry on proximal conversation. seems to deny any complaints of significance Review of Systems ROS otherwise unobtainable except for as above, ROS otherwise negative except for as above Objective Vital Signs Date Time Temp Pulse Resp B/P (MAP) Pulse Ox O2 Delivery O2 Flow Rate FiO2 01/28/17 14:44 36.7 73 18 160/91 (114) 95 Room Air 01/28/17 08:00 Room Air 01/28/17 06:34 36.4 70 20 167/94 (118) 94 Room Air 01/28/17 00:00 Room Air 01/27/17 22:59 37.2 70 18 123/75 (91) 93 Room Air 01/27/17 20:00 Room Air Physical Exam General Appearance: no apparent distress Eyes: EOMI ENT: hearing grossly normal Neck: trachea midline Respiratory/Chest: no respiratory distress, no accessory muscle use Extremities: normal range of motion Neurologic/Psychiatric: + pertinent finding (persistent facial droop and slurred speech) Skin: normal color, warm/dry Assessment and Plan 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 3wks ago and now aggrenox w current stroke MRI, echo, carotids, lipids, A1c noted -stroke b/l raising concern for central embolic, but overall picture seems that of hypertensive small vessel disease, and agree w neurology about risks for anticoagulation being more harm than good -without a clear "smoking gun" of embolic disease requiring anticoagulation - would continue anitplatelet -permissive HTN (slowly titrate control), antiplatelet, statin (agree w neuro that mainly academic between plavix or aggrenox with paucity of data on CVA failing asa), on plavix -PT/OT/speech -records reviewed from [place] - appearing embolic but all on same side of brain no clear indication for anticoagulation then either -appearing that she'll be stable for transfer to [facility] 01/29 if possible HTN -BP's all reasonable -Hydralazine 10 mg IV q 6 hr PRN -back on metoprolol -lisinopril start today, follow BP, follow BMP dysphagia -diet per speech recommendations -able to take pills -no s/s aspiration -ongoing speech eval and treat dementia (possibly with some acute delirium) -family describes probably moderate moving towards severe as prestroke baseline -they note not safe at home prior to strokes - anticipate orthopedic dentist in SNF. first for rehab from stroke then likely as fpc for dementia--family much prefers [facility] in [place] -mental state does appear improving from day to day anxiety -family notes that at baseline she was taking xanax uncertain dose TID scheduled for years -- reviewed PDMP 01/26 - actually it's lorazepam 0.5mg -- cautiously started at 0.5mg bid to balance between not wanting to risk delirogenic effects and not wanting to precipitate withdrawal -- appears to be stable at this dosing DVT prophylaxis -Heparin 5000 u subQ TID -TEDS, SCDs CODE STATUS -LEVEL V DO NO RESUSCITATE stable on med/surg anticipate [facility] SN[facility] by 01/29
[2017-01-28 23:08] VITALS: BP 174/82; PULSE 70; TEMP 36.6; O2SAT 90
[2017-01-29] MEDS: HEPARIN SOD 5000 UNIT/0.5 ML CARP SQ SCH ×2 (04:59→13:56)
[2017-01-29 07:11] VITALS: BP 200/79; PULSE 74; TEMP 36.7; O2SAT 90
[2017-01-29 07:55] LABS: BUN/CREATININE RATIO 15.7 (10-20); CALCIUM 8.8 mg/dl (8.5-10.1); CREATININE 0.5 mg/dl (0.60-1.20); POTASSIUM 3.7 mmol/L (3.5-5.1)
[2017-01-29] MEDS ORDERED: LISINOPRIL 5 MG TAB PO SCH (08:00)
[2017-01-29] MEDS: CLOPIDOGREL BISULFATE 75 MG TAB PO SCH (08:01)
[2017-01-29] MEDS: LORAZEPAM 0.5 MG TAB PO SCH (08:01)
[2017-01-29] MEDS: ATORVASTATIN 40 MG TAB PO SCH (08:01)
[2017-01-29] MEDS: METOPROLOL TARTRATE 25 MG TAB PO SCH (08:01)
[2017-01-29 08:43] VITALS: BP 171/99; PULSE 86
--- NOTE | 2017-01-29 09:18 | Discharge Summary ---
Discharge Summary Date of Service Jan 29, 2017. (Anya Charlton PA-C) Discharge Summary Admission Date: January 24, 2017 at 18:36 Discharge Date: Jan 29, 2017 Discharge Disposition: long-term facility Principal Diagnosis: CVA Problems/Secondary Diagnoses: Multiple cerebral infarctions, likely cardioembolic HTN UTI Dementia Anxiety Procedures: ECHOCARDIOGRAM: Interpretation Summary * Name: FERNANDEZ ROSA Study Date: 01/25/2017 07:44 AM BP: 151/82 mmHg * Patient Location: [facility]\S\S230\S\1 HR: 71 * : 1935 (M/d/yyyy) Gender: Female Height: 65 in * Age: 81 yrs Ethnicity: [place] Weight: 160 lb * Ordering Physician: Tayler Santos * Referring Physician: Ayden Oneil PA-C * Performed By: Lory Bates RDCS * * Reason For Study: CEREBRAL ISCHEMIA/EMBOLUS * BSA: 1.8 m2 * -- Conclusions -- * There is mild concentric left ventricular hypertrophy. * The left ventricle is hyperdynamic. * Grade I diastolic dysfunction, (abnormal relaxation pattern). * There is mild mitral regurgitation. * Right ventricular systolic pressure is elevated at 30-40mmHg. Procedure Details * A contrast injection of Definity was performed to improve assessment of LV function. * Contrast was injected into an intravenous site in the right arm. * One vial of Definity ultrasound contrast was diluted in normal saline to a total volume of 10 ml. A total of '2' ml of solution was administered during imaging. * Lot # [id number] of Definity utilized for procedure. * Expiration date 1 MAR 13. * The attending nurse who injected the contrast agent was TAO REILLY RN. * A saline contrast injection was performed to assess for cardiac shunting. * The injection was performed through an intravenous line in the right arm. * The attending nurse who injected the saline contrast was TAO REILLY RN. * A total of 20 cc of agitated saline was given. Left Ventricle * The left ventricle is normal in size. * There is mild concentric left ventricular hypertrophy. * Ejection Fraction = >70 %. * The left ventricle is hyperdynamic. * Grade I diastolic dysfunction, (abnormal relaxation pattern). Right Ventricle * The right ventricle is normal in size and function. Atria * The left atrial size is normal. * Right atrial size is normal. Mitral Valve * The mitral valve leaflets appear thickened, but open well. * There is mild mitral regurgitation. Tricuspid Valve * The tricuspid valve anatomy is normal. * There is mild tricuspid regurgitation. * Right ventricular systolic pressure is elevated at 30-40mmHg. Aortic Valve * The aortic valve is normal in structure and function. * The aortic valve is trileaflet. * No hemodynamically significant valvular aortic stenosis. * There is no significant aortic regurgitation. Great Vessels * The aortic root is normal size. Pericardium/Pleural * There is no pericardial effusion. MMode 2D Measurements and Calculations IVSd 1.1 cm IVSs 1.4 cm LVIDd 3.5 cm LVIDs 1.9 cm LVPWd 0.83 cm LVPWs 1.6 cm IVS/LVPW 1.4 FS 47.5 % EDV(Teich) 52.6 ml ESV(Teich) 10.6 ml EF(Teich) 79.9 % EDV(cubed) 44.7 ml ESV(cubed) 6.4 ml EF(cubed) 85.6 % % IVS thick 24.3 % % LVPW thick 91.7 % LV mass(C)d 102.8 grams LV mass(C)dI 57.2 grams/m\S\2 LV mass(C)s 91.0 grams LV mass(C)sI 50.6 grams/m\S\2 CO(Teich) 3.2 l/min CI(Teich) 1.8 l/min/m\S\2 SV(Teich) 42.0 ml SI(Teich) 23.3 ml/m\S\2 CO(cubed) 2.9 l/min CI(cubed) 1.6 l/min/m\S\2 SV(cubed) 38.2 ml SI(cubed) 21.2 ml/m\S\2 Ao root diam 3.1 cm Ao root area 7.5 cm\S\2 ACS 1.3 cm LA dimension 3.4 cm asc Aorta Diam 3.3 cm LA/Ao 1.1 LVOT diam 1.7 cm LVOT area 2.3 cm\S\2 LVAd ap4 29.1 cm\S\2 LVLd ap4 8.0 cm EDV(MOD-sp4) 88.9 ml LVAs ap4 12.1 cm\S\2 LVLs ap4 5.9 cm ESV(MOD-sp4) 20.4 ml EF(MOD-sp4) 77.1 % LVAd ap2 24.6 cm\S\2 LVLd ap2 7.1 cm EDV(MOD-sp2) 70.7 ml LVAs ap2 8.6 cm\S\2 LVLs ap2 4.9 cm ESV(MOD-sp2) 13.3 ml EF(MOD-sp2) 81.2 % CO(MOD-sp4) 5.3 l/min CI(MOD-sp4) 2.9 l/min/m\S\2 SV(MOD-sp4) 68.5 ml SI(MOD-sp4) 38.1 ml/m\S\2 CO(MOD-sp2) 4.4 l/min CI(MOD-sp2) 2.5 l/min/m\S\2 SV(MOD-sp2) 57.4 ml SI(MOD-sp2) 31.9 ml/m\S\2 Doppler Measurements and Calculations MV E max roby 51.4 cm/sec MV A max roby 110.6 cm/sec MV E/A 0.46 MV P1/2t max roby 87.5 cm/sec MV P1/2t 78.4 msec MVA(P1/2t) 2.8 cm\S\2 MV dec slope 326.9 cm/sec\S\2 MV dec time 0.49 sec Ao V2 max 164.2 cm/sec Ao max PG 10.8 mmHg Ao max PG (full) -0.03 mmHg MARITZA(V,A) 2.3 cm\S\2 MARITZA(V,D) 2.3 cm\S\2 LV V1 max PG 10.8 mmHg LV V1 max 164.4 cm/sec PA V2 max 87.6 cm/sec PA max PG 3.1 mmHg PI max roby 166.2 cm/sec PI max PG 11.1 mmHg PI dec slope 125.3 cm/sec\S\2 PI P1/2t 388.5 msec TR max roby 264.0 cm/sec Created: Initialized: 01/25/17; 1036 <Electronically signed by Tremayne Moore MD> Signed: 01/25/17 1103 Tremayne Moore MD The status of this report is Signed. Draft = Not yet reviewed or approved by Director Of Medical Review. Signed = Reviewed and approved by Director Of Medical Review. CT HEAD WITHOUT CONTRAST (CT) CLINICAL HISTORY: Stroke LEFT-SIDED WEAKNESS AND SLURRED SPEECH COMPARISON STUDY: No previous studies for comparison. TECHNIQUE: Axial CT of the brain is performed from the vertex to the skull base. IV contrast was not administered for this examination. CT DOSE: 537.48 mGy.cm FINDINGS: No intra or extra-axial mass lesions are visualized. There is no CT evidence of acute cortical infarction. There is no evidence of midline shift. There is no acute hemorrhage. No calvarial fractures are visualized. There are moderately extensive white matter hypodensities likely on a small vessel basis. There is an old right thalamic lacunar infarct. There is an old left cerebellar infarct. There is an old lacunar infarct in the region of the left external capsule. There is no evidence of pathologic ventricular dilatation. There is no evidence of acute sinusitis IMPRESSION: No acute intracranial findings Electronically signed by: Christopher Camejo M.D. 01/24/2017 5:14 PM Dictated Date/Time: 01/24/2017 5:12 PM The status of this report is Signed. Draft = Not yet reviewed or approved by Radiologist. Signed = Reviewed and approved by Radiologist. CHEST ONE VIEW PORTABLE CLINICAL HISTORY: Stroke COMPARISON STUDY: No previous studies for comparison. FINDINGS: The heart is borderline enlarged. There is no failure. There is no lobar consolidation. Linear opacities the left lung base are likely atelectatic.[ IMPRESSION: Left basilar opacities, likely atelectatic. No evidence of failure. Electronically signed by: Christopher Camejo M.D. 01/24/2017 5:22 PM Dictated Date/Time: 01/24/2017 5:22 PM The status of this report is Signed. Draft = Not yet reviewed or approved by Radiologist. Signed = Reviewed and approved by Radiologist. NECK MRA HISTORY: Stroke TECHNIQUE: [id number] and gadolinium-enhanced MRA of the neck was performed both before and after the intravenous administration of contrast. All measurements were calculated based on NASCET criteria. The patient was administered 7.2 cc of intravenous Gadavist. The study is limited from a technical standpoint secondary to motion artifact. COMPARISON STUDY: None. FINDINGS: The aortic arch and proximal great vessels are patent as visualized. There is no significant stenosis, occlusion, or dissection identified within the bilateral common carotid, internal carotid, or vertebral arteries. IMPRESSION: No significant stenosis, occlusion, or dissection identified within the carotid or vertebral arteries. Electronically signed by: Christopher Camejo M.D. 01/24/2017 10:45 PM Dictated Date/Time: 01/24/2017 10:43 PM The status of this report is Signed. Draft = Not yet reviewed or approved by Radiologist. Signed = Reviewed and approved by Radiologist. MR ANGIOGRAPHY OF THE [place] NO CONTRAST CLINICAL HISTORY: Multiple strokes. Confusion. Left-sided drooping. COMPARISON STUDY: None. A 3-D [id number] MR angiographic sequence of the [place] was performed. Both the source and projection images were reviewed. The study is limited from a technical standpoint secondary to patient motion. There is no evidence of major intracranial branch occlusion. There is no evidence of intracranial stenosis. There are no lesions suspicious for aneurysm. IMPRESSION: 1. Significantly limited study from a technical standpoint 2. No aneurysm identified 3. No evidence of major intracranial stenosis Electronically signed by: Christopher Camejo M.D. 01/24/2017 10:32 PM Dictated Date/Time: 01/24/2017 10:30 PM The status of this report is Signed. Draft = Not yet reviewed or approved by Radiologist. Signed = Reviewed and approved by Radiologist. MRI OF THE BRAIN WITHOUT AND WITH IV CONTRAST CLINICAL HISTORY: Stroke COMPARISON STUDY: Head CT dated 01/24/2017 TECHNIQUE: MRI of the brain was performed from the vertex to the skull base utilizing various T1 and T2 weighted sequences. Following the IV administration of 7.2 mL of Gadavist contrast, additional enhanced images were obtained. FINDINGS: Sagittal T1, axial diffusion, proton density and T2 weighted axial, coronal FLAIR, and pre and post axial T1-weighted images were acquired. These were supplemented with post gadolinium coronal T1 weighted images. No intra or extra-axial mass lesions are visualized. There are foci of restricted water diffusion within the left central gemma as well as the right caudate and lentiform nucleus. There is also a punctate focus of restricted water diffusion within the deep white matter of the right parietal lobe. There is no evidence of ventricular dilatation. Proton density T2-weighted and FLAIR images reveal there are moderately extensive foci of increased T2 signal within the white matter likely a small vessel basis. There are scattered lacunar infarcts involving the left cerebellar hemisphere, and both thalami. There are no abnormal flow voids. There is no evidence of pathologic enhancement. The examination is limited from a technical standpoint secondary to motion artifact IMPRESSION: 1. Acute/subacute infarcts involving the left central gemma, right caudate, and right lentiform nucleus 2. Moderately extensive white matter disease and multiple additional old lacunar infarcts 3. No pathologically enhancing masses 4. No evidence of hydrocephalus Electronically signed by: Christopher Camejo M.D. 01/24/2017 10:39 PM Dictated Date/Time: 01/24/2017 10:34 PM The status of this report is Signed. Draft = Not yet reviewed or approved by Radiologist. Signed = Reviewed and approved by Radiologist. CT OF THE HEAD WITHOUT CONTRAST CLINICAL HISTORY: fall and hit head, s/p CVA COMPARISON STUDY: Head CT and MRI of the brain January 24, 2017. CT DOSE: 1228.53 mGy.cm TECHNIQUE: Helical axial images of the head were obtained without IV contrast. Automated exposure control was utilized for the study. FINDINGS: No acute intracranial hemorrhage, midline shift or mass effect is present. Ventricular system is stable. Basilar cisterns are patent. There are no extra-axial collections. Extensive white matter hypodensity suggests small vessel disease. There is an old infarct within left cerebellar hemisphere. There is an old infarct within the right thalamus. The small acute to subacute infarcts on MRI of the brain performed January 24, 2017 are better depicted on that exam. There is no calvarial fracture. IMPRESSION: 1. No acute intracranial hemorrhage or mass effect. 2. The small acute to subacute infarcts shown on MRI of January 24, 2017 are better depicted on that exam. 3. No calvarial fracture. Electronically signed by: Angel Hdz M.D. 01/25/2017 7:10 AM Dictated Date/Time: 01/25/2017 7:05 AM The status of this report is Signed. Draft = Not yet reviewed or approved by Radiologist. Signed = Reviewed and approved by Radiologist. CHEST ONE VIEW PORTABLE CLINICAL HISTORY: Left rib pain after fall. COMPARISON STUDY: Chest radiograph January 24, 2017. FINDINGS: No pneumothorax or pleural effusion is identified. No left rib fractures are identified although sensitivity is diminished given this technique. There are cholecystectomy clips. Mild cardiomegaly is noted without evidence of pulmonary edema. There is mild left basilar opacity. IMPRESSION: 1. No pneumothorax. 2. Mild left basilar opacity which likely reflects atelectasis although consolidation could appear similar. Electronically signed by: Angel Hdz M.D. 01/25/2017 8:04 AM Dictated Date/Time: 01/25/2017 8:02 AM The status of this report is Signed. Draft = Not yet reviewed or approved by Radiologist. Signed = Reviewed and approved by Radiologist. VIDEO SWALLOW HISTORY: r/o aspiration post-stroke; please schedule per order TECHNIQUE: Video fluoroscopic evaluation of swallowing was performed in the AP and lateral projections by the speech pathology staff. The patient is fed nectar-thick and thin liquid barium, a barium coated wafer, and barium pudding. FLUOROSCOPY TIME: 4.5 minutes. A cine loop submitted. COMPARISON STUDY: None. FINDINGS: There is slightly poor pharyngeal constriction and pharyngeal fasciculations resulting in a few episodes of incomplete epiglottic deflection. This results in deep penetration with the thin liquid barium. No aspiration was identified. Small to moderate amount of residue seen within the hypopharynx. IMPRESSION: 1. No aspiration identified. Additional findings as described above. 2. Please see the speech pathologist report for detailed findings and recommendations. Electronically signed by: Yousif Kumar M.D. 01/26/2017 2:53 PM Dictated Date/Time: 01/26/2017 2:50 PM The status of this report is Signed. Draft = Not yet reviewed or approved by Radiologist. Signed = Reviewed and approved by Radiologist. Report * PROCEDURE: The patient was seen in the Radiology Department of [facility] for the VFSS. Cursory examination of the oral cavity revealed adequate dentition. Movement of the articulators was impaired as evidenced by moderate dysarthria and (L) facial droop. The patient was seated upright in a wheelchair and was viewed in both the Anterior-Posterior (A-P) and Lateral planes. Volitional phonation exercises completed in the A-P plane revealed bilateral vocal fold movement BUT VOCAL QUALITY WAS DYSPHONIC--STRAINED, STRANGLED QUALITY AND LOW INTENSITY. In the lateral plane, the patient was given the following boluses: 1 tsp. thin liquid barium x 2, single swallow thin liquid barium self-presented from a cup, sequential swallows of thin liquid barium self-presented from a cup, 1 tsp. nectar-thick liquid barium, single swallow nectar-thick liquid barium self-presented from a cup, 1 tsp. barium pudding, and 1 club cracker with barium pudding. After the cracker, the patient was given (2) extra cup sips of thin liquid barium. The patient was then repositioned into the A-P plane and given 1 tsp. barium pudding. RESULTS: Oral Stage: Interlabial bolus escape progressing to mid-chin. Cohesive bolus between tongue and soft palate during oral bolus hold exercise. Disorganized chewing and mashing with solid pieces of bolus left unchewed. Disorganized delayed lingual motion for bolus transport. MINIMAL TO NO CLEARANCE OF SOLID BOLUS FROM ORAL CAVITY AFTER SWALLOWING. Latent pharyngeal swallow intiation when the bolus head was in the pyriform sinuses. Moderate-severe oral stage dysphagia. Pharyngeal Stage: No bolus between soft palate and pharyngeal wall. Partial laryngeal elevation with partial approximation of the arytenoids to the epiglottic petiole. Partial anterior hyoid excursion. Partial epiglottic inversion. Complete laryngeal vestibular closure. Present pharyngeal stripping wave. Unilateral pharyngeal contraction with unilateral pyriform sinus retention of the pudding bolus. Partial distention and duration of PES opening. Wide column contrast between tongue base and pharyngeal wall. Collection of residue in the pyriform sinuses that cleared with a second swallow. There was NO ASPIRATION DURING THIS STUDY, but there was penetration with thin liquids. The patient had just enough oral-pharyngeal bolus control of thin liquid when drinking from a cup to prevent premature spillage that would result in aspiration. No penetration or aspiration of other boluses. Patient has markedly decreased tongue base retraction/ tongue base strength that resulted in some tongue base and pyriform sinus bolus retention after the first swallow of a bolus. She used second, dry swallows to clear it, but required verbal cues to do so at times. Esophageal Stage: A pudding bolus transited the esophagus without retention. Consultations: Neurology (Anya Charlton, BOAZ-C) Problems/Secondary Diagnoses: CHronic diastolic CHF LVH Mild mitral regurgitation Elevated RASP/Suspected Pulmonary HTN (Viktoria Grimm MD) Medication Reconciliation New Medications: Sulfa/Trimethoprim (Bactrim Ds 800MG/160MG) Tab 1 TAB PO BID for 7 Days, #14 TAB Clopidogrel Bisulfate (Clopidogrel) 75 Mg Tab 75 MG PO QAM for 30 Days, TAB Lisinopril (Lisinopril) 5 Mg Tab 5 MG PO QAM for 30 Days, TAB Lorazepam (Lorazepam) 0.5 Mg Tab 0.5 MG PO BID for 3 Days, #6 TAB Continued Medications: Atorvastatin (Lipitor) 40 Mg Tab 40 MG PO DAILY, TAB TAKE @ 1700 Cholecalciferol (Vitamin D-3) 1,000 Unit Cap 1000 UNITS PO QAM Metoprolol Tartrate (Lopressor) (Lopressor) 25 Mg Tab 25 MG PO BID, TAB Polyethylene Glycol 3350 (Miralax) 1 Pow Pow 8.5 GM PO Q2D, #255 GM Senna/Docusate Sod (Senokot S) 1 Tab Tab 1 TAB PO DAILY, TAB TAKE @ NOON Discontinued Medications: Amlodipine (Norvasc) 5 Mg Tab 5 MG PO DAILY, TAB Dipyridamole/Aspirin (Aggrenox 25-200 mg) 1 Cap Cap 1 CAP PO BID Furosemide (Lasix) 20 Mg Tab 20 MG PO QAM, TAB Losartan Potassium (Cozaar) 100 Mg Tab 100 MG PO DAILY, TAB Discharge Exam Review of Systems: Constitutional: No fever, No chills, No sweats, No weakness, No fatigue Eyes: No worsening of vision Respiratory: No cough, No shortness of breath, No hemoptysis Cardiovascular: No chest pain, No edema, No palpitations Abdomen: No pain, No nausea, No vomiting, No diarrhea, No constipation Musculoskeletal: No joint pain, No muscle pain, No swelling, No calf pain Genitourinary - Female: No dysuria, No hematuria Neurologic: No weakness, No numbness/tingling Psychiatric: No depression symptoms, No anxiety Hematologic / Lymphatic: No abnormal bleeding/bruising Integumentary: No rash, No itch, No new/changing skin lesions Physical Exam: General Appearance: no apparent distress Eyes: normal inspection, PERRL ENT: hearing grossly normal Neck: supple Respiratory/Chest: lungs clear, no respiratory distress, no accessory muscle use (Anya Charlton, ALANNAC) Hospital Course HPI on admission: 81 y/o female sent emergency department from [facility] for evaluation of new left-sided facial droop, confusion and slurred speech. The patient was at [facility] for rehabilitation from a CVA that occurred 3 weeks ago. The patient was seen at [facility]. At that time, she was on aspirin for a hx of previous CVA in 2011. She was switched to Aggrenox. The patient's family reports seeing her 2 days ago. They said that she did not have facial droop and was acting normally at that time. The patient is able to tell me that she is not having any pain. She says that she is having difficulty speaking she is having trouble swallowing. She is not however consistently answering questions appropriately. 81 y/o female sent to ED from [facility] for evaluation of confusion, L sided weakness and new facial droop. Per family she did not have facial droop 2 days ago. Worrisome for new CVA. Multiple cerebral infarctions, likely cardioembolic- reportedly failed ASA and Aggrenox: - Admitted to [facility] for cardiac monitoring -- Transferred to med/surg on 01/26 - Cardiac enzymes- negative - Head CT, MRI brain combo, MRA neck combo, MRA head w/out contrast obtained - ECHO obtained - Stroke protocol - PT/OT- recommended rehab - Speech therapy consultation, recommendations appreciated - Lipid panel and hA1C reviewed -- hA1C= 6.1% -- Lipid panel- triglycerides 46, total cholesterol 100, LDL 28, HDL 63, VLDL 9- Atorvastatin 40 mg daily - Neurology consultation -- Poor anticoagulation candidate given fall risk, underlying cognitive dysfunction, and no clear evidence of embolic disease This was discussed with daughter by neurology- she was in agreement -- Plavix 75 mg daily HTN- allow for permissive HTN, titrating slowly: - Lopressor 25 mg BID and Lisinopril 5 mg daily - Hydralazine 10 mg IV q 6 hr PRN - Discontinued Losartan 100 mg daily and Norvasc 5 mg daily Dysphagia: - Oral intake per speech recommendations: 1.Moist pureed diet with thin liquids 2.Aspiration precautions: NO STRAWS; fully upright for all oral intake; alternate consistencies during meals 3.The patient would benefit from [facility] f/u in SNF or Rehab setting for dysarthria and dysphagia management/diet advancement. Oral-motor strength and precision could be treated to benefit both speech and swallowing. 4.The patient is DYSPHONIC. If this is to be addressed would recommend outpatient f/u with ENT services. UTI- staph species: Bactrim Ds 1 tab PO BID x7 days- last day of treatment 02/04 Dementia, w/ ?acute delirium: Family notes patient not safe at home prior to stroke- anticipated long-term SNF- acutely for stroke, then long-term for dementia Anxiety: Ativan 0.5 mg BID GI Prophylaxis: IV Zofran PRN, Milk of Mag PRN, MiraLAX DVT Prophylaxis: Heparin 5000 u subQ TID, TEDS, SCDs Code Status: LEVEL V, DNR Dispo: Discharge to [facility] Total Time Spent: Greater than 30 minutes This includes examination of the patient, discharge planning, medication reconciliation, and communication with other providers. (Anya Charlton PA-C) Discharge Instructions Please refer to the electronic Patient Visit Report (Discharge Instructions) for additional information. (Anya Charlton PA-C) Follow-Up Follow-up w/ [facility] provider within 24-48 hours Follow-up w/ PCP 5-7 after discharge from SNF Follow-up with ENT for dysphonia if desired by patient Please follow-up/keep all of your subspecialty appointments (Anya Charlton PA-C) Reviewed: Pt Seen/Exam by Me (Viktoria Grimm MD) History Physician Sales Development Director Supervision Note: I interviewed and examined the patient. Discussed with BOAZ Charlton and agree with findings and plan as documented in the note. Any exceptions or clarifications are listed here: No complaints. VSS, NAD RRR no mgr CTAB no wcr Abd soft NT ND Ext no edema 81 yo female with multiple acute CVAs, discharged on ASA, Plavix, no anticoagulation as no clear atrial fibrillation documented. continue PT/OT, supportive care Documented By: Viktoria Grimm (Viktoria Grimm MD)
--- NOTE | 2017-01-29 09:31 | Discharge Instructions ---
Discharge Instructions Date of Service Jan 29, 2017. Admission Reason for Admission: CVA Discharge Discharge Diagnosis / Problem: CVA Discharge Goals Goal(s): Decrease discomfort, Improve function, Increase independence, Learn about illness, Diagnostic testing, Therapeutic intervention, Prevent Disease Progression Activity Recommendations Activity Level: Assistance Required Therapies: Physical Therapy, Occupational Therapy, Speech Therapy . Additional Information Patient informed of condition: Yes Advance Directives: Yes DNR: Yes Level of Care: Skilled Communicable Disease: No Prognosis: Stable Manzo Catheter: No Instructions / Follow-Up Instructions / Follow-Up Multiple cerebral infarctions, likely cardioembolic- reportedly failed ASA and Aggrenox: - PT/OT- requiring 1-2 assist, ambulates w/ rolling walker - Speech therapy consultation- recommendations below - Lipid panel and hA1C reviewed -- hA1C= 6.1% -- Lipid panel- triglycerides 46, total cholesterol 100, LDL 28, HDL 63, VLDL 9- Atorvastatin 40 mg daily - Neurology consultation -- Poor anticoagulation candidate given fall risk, underlying cognitive dysfunction, and no clear evidence of embolic disease This was discussed with daughter by neurology- she was in agreement -- Plavix 75 mg daily HTN- allow for permissive HTN, titrate slowly: - Lopressor 25 mg BID and Lisinopril 5 mg daily - Hydralazine 10 mg IV q 6 hr PRN - Discontinued Losartan 100 mg daily and Norvasc 5 mg daily Dysphagia: - Oral intake per speech recommendations: 1.Moist pureed diet with thin liquids 2.Aspiration precautions: NO STRAWS; fully upright for all oral intake; alternate consistencies during meals 3.The patient would benefit from AMBULATORY SERVICE REPRESENTATIVE f/u in SNF or Rehab setting for dysarthria and dysphagia management/diet advancement. Oral-motor strength and precision could be treated to benefit both speech and swallowing. 4.The patient is DYSPHONIC. If this is to be addressed would recommend outpatient f/u with ENT services. UTI- staph species: Bactrim DS 1 tab PO BID x7 days- last day of treatment 02/04 Dementia, w/ ?acute delirium: Family notes patient not safe at home prior to stroke- anticipated long-term SNF- acutely for stroke, then long-term for dementia Anxiety: Ativan 0.5 mg BID Code Status: LEVEL V, DNR Follow-up with [facility] provider within 24-48 hrs Please follow-up with your PCP within 5-7 days after discharge from [facility] Please follow-up with ENT for dysphonia, if desired Please follow-up/keep all of your subspecialty appointments Current Hospital Diet Patient's current hospital diet: AHA Diet (Heart Healthy) Discharge Diet Recommended Diet: AHA Diet (Heart Healthy) Diet Texture: Pureed (blended smooth) Pending Studies Studies pending at discharge: no Physician Orders On Transfer Special Precautions: Aspiration precautions Fall precautions Dressing Changes: None IV Therapy: None Vital Signs: Routine Additional Orders: Speech Recommendations: 1.Moist pureed diet with thin liquids 2.Aspiration precautions: NO STRAWS; fully upright for all oral intake; alternate consistencies during meals 3.The patient would benefit from AMBULATORY SERVICE REPRESENTATIVE f/u in SNF or Rehab setting for dysarthria and dysphagia management/diet advancement. Oral-motor strength and precision could be treated to benefit both speech and swallowing. 4.The patient is DYSPHONIC. If this is to be addressed would recommend outpatient f/u with ENT services. Laboratory Results Last 24 Hours Test 01/29/17 07:00 Sodium Level 142 mmol/L Potassium Level 3.7 mmol/L Chloride Level 103 mmol/L Carbon Dioxide Level 32 mmol/L Anion Gap 7.0 mmol/L Blood Urea Nitrogen 8 mg/dl Creatinine 0.50 mg/dl Est Creatinine Clear Calc Drug Dose 84.5 ml/min Estimated GFR () 104.5 Estimated GFR (Non- 90.1 BUN/Creatinine Ratio 15.7 Random Glucose 99 mg/dl Calcium Level 8.8 mg/dl Chemistry Specimen Hemolysis Hemoglobin A1c Test 01/25/17 05:14 Range/Units Estimated Average Glucose 128 mg/dl Hemoglobin A1c 6.1 H 4.5-5.6 % Lipid Panel Test 01/25/17 05:14 Range/Units Triglycerides Level 46 0-150 mg/dl Cholesterol Level 100 0-200 mg/dl HDL Cholesterol 63 mg/dl Cholesterol/HDL Ratio 1.6 LDL Cholesterol, Calculated 28 mg/dl Medical Emergencies . Who to Call and When: Medical Emergencies: If at any time you feel your situation is an emergency, please call 911 immediately. . Non-Emergent Contact Non-Emergency issues call your: Primary Care Provider . . "Provider Documentation" section prepared by Anya Charlton. . Core Measure Problem Core Measures: Stroke Stroke Core Measures Reason no t-PA for Stroke: Treatment not indicated Reason no antithrom by day 2: Treatment provided - N/A Reason no antithrom at D/C: Contraindicated (fall risk, dementia, no clear evidence of embolic cause ) Reason no statin at D/C: Treatment provided - N/A Reason no anticoag w/a fib: Treatment not indicated
[2017-01-29] MEDS ORDERED: PLV75 PO (09:34)
[2017-01-29] MEDS ORDERED: ATV5 PO (09:34)
[2017-01-29] MEDS ORDERED: LSN5 PO (09:34)
[2017-01-29] MEDS ORDERED: KFL500 PO (09:34)
[2017-01-29] MEDS ORDERED: [UNRECOGNIZED DRUG - REMARK] PRN (09:45)
[2017-01-29] MEDS ORDERED: CEPHALEXIN MONOHYDRATE 500 MG CAP PO SCH (09:45)
[2017-01-29] MEDS ORDERED: SULF800T23 PO (11:45)
[2017-01-29 12:48] VITALS: BP 171/99; PULSE 86; TEMP 36.7; O2SAT 90
== END 2017-01-29 14:47 | DRG 65 ==
LOC: ENRESERVTM → ENRESERVDT → EDBD 16:09 → C.EDB 16:11 → C.2T 18:36 → ENRESERV 01-26 15:55 → C.MS4W 01-26 16:48
PROVIDERS: ADMIT Family Medicine; ATTEND Family Medicine
DX: I63.9 Cerebral infarction, unspecified (principal); G81.94 Hemiplegia, unspecified affecting left nondominant side; I69.354 Hemiplegia and hemiparesis following cerebral infarction affecting left non-dominant side; N39.0 Urinary tract infection, site not specified; B95.7 Other staphylococcus as the cause of diseases classified elsewhere; R29.710 NIHSS score 10; R29.810 Facial weakness; R47.81 Slurred speech; F41.9 Anxiety disorder, unspecified; F03.90 Unspecified dementia, unspecified severity, without behavioral disturbance, psychotic disturbance, mood disturbance, and anxiety; R13.10 Dysphagia, unspecified; I10 Essential (primary) hypertension; Z51.81 Encounter for therapeutic drug level monitoring; Z79.899 Other long term (current) drug therapy; Z79.02 Long term (current) use of antithrombotics/antiplatelets; Z79.82 Long term (current) use of aspirin; Z66 Do not resuscitate; Z91.81 History of falling